=== PATIENT | female | born 1955 | race Caucasian/White ===

== ENCOUNTER → 2017-07-24 | Outpatient (CLI) | payer OTHER ==
[~2017-07-24] MED LIST: ALBU.5I NEB; ALBUAER3 INH; AMBI10TA PO; DIAZ5TAB PO; DULE200A INH; ECON0.052 TOPICAL; FLUO20CA12 PO; GABA100C4 PO; METO5TAB PO; MONT10TA2 PO; MUPI2CRE3 TOPICAL; OMEP20TA PO; OXYC-396 PO; OXYC1CAP PO; PERC10TA27 PO; SPIRCAP INH; SUCR1TAB PO; ZANTTAB11 PO
--- NOTE | 2017-07-24 14:33 | RADRPT ---
EXAM DATE/TIME: 07/24/2017 11:45 [facility] COMPARISON: No previous studies available for comparison. INDICATIONS : Evaluate for pneumonia, pneumothorax or communicable disease. Pre-op for left foot surgery. MEDICAL HISTORY : Myocardial infarction. SURGICAL HISTORY : None. ENCOUNTER: Initial ACUITY: 1 day PAIN SCORE: 0/10 LOCATION: Bilateral chest FINDINGS: PA and lateral views of the chest demonstrate the lungs to be symmetrically aerated without evidence of mass, infiltrate or effusion. The cardiomediastinal contours are unremarkable. Osseous structure s are intact. CONCLUSION: No acute disease. Rigoberto Desouza Jr., MD on July 24, 2017 at 14:22 Board Certified Radiologist. This report was verified electronically.
--- NOTE | 2017-07-25 13:09 | EKG ---
Date Performed: 07/24/2017 Time Performed: 10:58:28 PTAGE: 62 years EKG: Sinus rhythm INDETERMINATE AXIS RIGHT BUNDLE BRANCH BLOCK ABNORMAL ECG NO PREVIOUS TRACING DOCTOR: Bre Blanc Interpretating Date/Time 07/25/2017 13:07:17
== END ==
LOC: CPRE 10:41 → EDUNIT# 12:00
PROVIDERS: ATTEND Podiatrist Primary Podiatric Medicine
DX: Z01.810 Encounter for preprocedural cardiovascular examination (principal); Z01.812 Encounter for preprocedural laboratory examination; M20.5X2 Other deformities of toe(s) (acquired), left foot; M20.42 Other hammer toe(s) (acquired), left foot; I45.10 Unspecified right bundle-branch block
CPT/HCPCS: 71020; 93005

== ENCOUNTER → 2017-07-28 | Day surgery (SDC) | payer OTHER ==
[~2017-07-28] VITALS: Ht 152.4 cm; Wt 52.5 kg
[~2017-07-28] MED LIST changes: +*HYDROmorphone PF 1 MG VIAL PERIprocedural Use ONLY ONE; +ACETAMINOPHEN 325 MG TAB PO PRN; +CHLORHEXIDINE GLUCONATE 2 % 1 PACK (2 CLOTHS) TOPICAL PRN; +DO NOT ADM ANY ANTICOAGULANT DRUGS PRN; +FAMOTIDINE 20 MG/2 ML VIAL ONE; +HYDROmorphone HCL PF 1 MG/ML VIAL IV PRN; +INSULIN HUMAN REGULAR 1,000 UNITS/10 ML VIAL SQ PRN; +LACTATED RINGER'S 1000 ML IV PRN; +LIDOCAINE HCL 1% 50 ML VIAL ONE; +METOPROLOL TARTRATE 25 MG TAB PO PRN; +MIDAZOLAM HCL 2 MG/2 ML VIAL ONE; +NALOXONE HCL 0.4 MG/ML AMP IV PRN; +ONDANSETRON HCL 4 MG/2 ML VIAL IV PUSH ONE; +POVIDONE IODINE 5% (ANTISEPSIS KIT) 4 APPLICATIONS EACH NARE PRN; +PROPOFOL 200 MG/20 ML AMP IV ONE; +Post-op Orders (for Pharmacy) MISC XX ONE; +SODIUM CHLORID 0.9% 500 ML IV PRN; +SODIUM CHLORIDE 0.9% FLUSH 10 ML FLUSH IV FLUSH PRN; +ePHEDrine/NS 25 MG/5 ML SYR IV ONE; +oxyCODONE/ACETAMINOPHEN 10 MG/325 MG TAB PO PRN; +oxyCODONE/ACETAMINOPHEN 5 MG/325 MG TAB PO PRN
--- NOTE | 2017-07-28 10:29 | HHI.DS ---
Discharge Summary Admission Date Discharge Date: Jul 28, 2017 Admitting Diagnosis Pt Condition on Discharge: Good Discharge Disposition: Discharge Home Discharge Instructions DIET: Follow Instructions for: As Tolerated, No Restrictions Activities you can perform: Weight Bearing as Elijah, Full Weight Bearing (with postop shoe) Activities to avoid: Driving for 24 hrs, Prolonged Standing, Bathing, Shower Nicolás Anand DPM Jul 28, 2017 10:29
--- NOTE | 2017-07-28 10:36 | PD.OP ---
Operative Report Date of Surgery: Jul 28, 2017 Preoperative Diagnosis: (1) Hallux limitus of left foot (2) Hammertoe of left foot Postoperative Diagnosis: (1) Hallux limitus of left foot (2) Hammertoe of left foot Procedure: 1 Mora bunionectomy left foot 2 arthrodesis second toe left foot Anesthesia: General inhalation Surgeon: Santoyo DPM Plumber Cub(s): Yuri CULP Operation and Findings: Patient is brought to the operating room placed on the operating table in a supine position. A pneumatic ankle cuff was placed around the patient's left ankle after adequate web roll padding. Patient was given general inhalation anesthesia and the left foot was prepped and draped in the usual sterile manner. After the appropriate timeout was performed the left lower extremity was elevated above the operating table for a period of 3 minutes at which time the pneumatic ankle cuff was inflated to 250 mmHg. Left foot was lowered to the operating table and noticed that the patient had severe hallux abductovalgus with hallux limitus of the left first MPJ. He was also noted that the patient had a severe hammertoe deformity which was overriding the hallux. At this time a 6-1/2 cm linear incision was made medial to the extensor hallucis longus tendon on the dorsal medial aspect of the first MPJ. The incision was deepened using sharp and blunt dissection taking care to tie off on any superficial bleeding vessels and retracting all vital structures. The head of the first metatarsal was freed up and using an oscillating saw the medial bony eminence was resected. Attention was directed to the base of the proximal phalanx where using an oscillating saw proximal third was resected and removed from the surgical site. The hallux can now sit in a more correct anatomical position. The area was flushed with copious amounts of sterile saline. The capsular edges were pursestring and into the space between the first metatarsal and the proximal phalanx. Subcutaneous tissues reapproximated and closed with 3-0 Vicryl. Skin edges were reapproximated and closed using a running subcuticular closure of 5-0 Monocryl. Attention was then directed to the second toe of the left foot which is noted to have a rigid hammertoe deformity at the proximal interphalangeal joint. At this time a 2-1/2 cm linear incision was made centered over the proximal interphalangeal joint. The incision was deepened using sharp and blunt dissection down to the level of the proximal interphalangeal joint. A transverse tenotomy was performed. The head of the proximal phalanx and the base of the intermediate phalanx were then resected using an oscillating saw. After the second toe contraction was reduced 80.453 inch K wire was driven from the intermediate phalanx out through the distal aspect of the second toe and then retrograded into the proximal phalanx of the second toe to achieve rigidity of the reduction contraction. Subcutaneous tissue was flushed with copious amounts of sterile saline. Skin edges were reapproximated and subcutaneous tissue is closed with 3-0 Vicryl and skin edges were closed with 4- 0 Prolene. The shoe be noted that the second toe no longer sat of the hallux. The areas were then injected with 10 cc of 0.5% Marcaine. Bone was sent to pathology. Sponge and instrument counts were noted to be correct. Estimated blood loss was less than 5 cc. Patient's hour the procedures and anesthesia well and left the OR to PACU in apparent satisfactory condition with all vital signs stable. It should be noted that the pneumatic cuff was deflated at 48 minute wayne and the vascular status returned to all digits of the left foot. Nicolás Anand DPM Jul 28, 2017 10:36
--- NOTE | 2017-07-28 12:04 | RADRPT ---
EXAM DATE/TIME: 07/28/2017 10:37 [facility] COMPARISON: No previous studies available for comparison. INDICATIONS : Post op bunionectomy. MEDICAL HISTORY : None. SURGICAL HISTORY : None. ENCOUNTER: Initial ACUITY: 1 day PAIN SCORE: Non-responsive. LOCATION: Left Foot FINDINGS: Pins are seen in the second phalanx and distal first metatarsal. Alignment is anatomic. Degenerativ e changes are evident. CONCLUSION: Surgical pinning as described above. Eliud Alcala MD FACR on July 28, 2017 at 12:01 Board Certified Radiologist. This report was verified electronically.
[2017-07-28 12:10] VITALS: BP 103/58; PULSE 76; RESP 20; TEMP 97.3; O2SAT 96
== END | disposition home or self-care (01) ==
LOC: HSDC 07:01
PROVIDERS: ATTEND Podiatrist Primary Podiatric Medicine
DX: M20.5X2 Other deformities of toe(s) (acquired), left foot (principal); M20.42 Other hammer toe(s) (acquired), left foot; J44.9 Chronic obstructive pulmonary disease, unspecified; E78.5 Hyperlipidemia, unspecified; K76.9 Liver disease, unspecified; M79.7 Fibromyalgia; I25.10 Atherosclerotic heart disease of native coronary artery without angina pectoris; I25.2 Old myocardial infarction; G47.30 Sleep apnea, unspecified; F32.9 Major depressive disorder, single episode, unspecified; M06.9 Rheumatoid arthritis, unspecified; M19.90 Unspecified osteoarthritis, unspecified site; Z87.891 Personal history of nicotine dependence; Z87.11 Personal history of peptic ulcer disease; Z79.891 Long term (current) use of opiate analgesic; Z79.51 Long term (current) use of inhaled steroids; Z79.899 Other long term (current) drug therapy
CPT/HCPCS: 01480; 28285; 28292; 73630; 88304; 88311; J1170; J2250; J2405; J3010; L3260; 88307

== ENCOUNTER 2018-01-06 12:30 | Inpatient (IN) | payer OTHER, MEDICARE ==
[~2018-01-06] VITALS: Ht 152.4 cm; Wt 58.2 kg
[~2018-01-06 12:30] MED LIST changes: -*HYDROmorphone PF 1 MG VIAL PERIprocedural Use ONLY ONE; -ACETAMINOPHEN 325 MG TAB PO PRN; -CHLORHEXIDINE GLUCONATE 2 % 1 PACK (2 CLOTHS) TOPICAL PRN; -DO NOT ADM ANY ANTICOAGULANT DRUGS PRN; -FAMOTIDINE 20 MG/2 ML VIAL ONE; -HYDROmorphone HCL PF 1 MG/ML VIAL IV PRN; -INSULIN HUMAN REGULAR 1,000 UNITS/10 ML VIAL SQ PRN; -LACTATED RINGER'S 1000 ML IV PRN; -LIDOCAINE HCL 1% 50 ML VIAL ONE; -METOPROLOL TARTRATE 25 MG TAB PO PRN; -MIDAZOLAM HCL 2 MG/2 ML VIAL ONE; -NALOXONE HCL 0.4 MG/ML AMP IV PRN; -OMEP20TA PO; +OMEP20TA93 PO; -ONDANSETRON HCL 4 MG/2 ML VIAL IV PUSH ONE; -POVIDONE IODINE 5% (ANTISEPSIS KIT) 4 APPLICATIONS EACH NARE PRN; -PROPOFOL 200 MG/20 ML AMP IV ONE; -Post-op Orders (for Pharmacy) MISC XX ONE; -SODIUM CHLORID 0.9% 500 ML IV PRN; -SODIUM CHLORIDE 0.9% FLUSH 10 ML FLUSH IV FLUSH PRN; -ePHEDrine/NS 25 MG/5 ML SYR IV ONE; -oxyCODONE/ACETAMINOPHEN 10 MG/325 MG TAB PO PRN; -oxyCODONE/ACETAMINOPHEN 5 MG/325 MG TAB PO PRN
[2018-01-06 12:32] VITALS: BP 98/57; PULSE 62; RESP 17; TEMP 98.2; O2SAT 95
--- NOTE | 2018-01-06 13:10 | PD ---
HPI Chief Complaint: Injury Time Seen by Provider: 12:46 Travel History International Travel<30 days: No Contact w/Intl Traveler<30days: No Traveled to known affect area: No History of Present Illness HPI The patient is a [id number] female who presents to the emergency department for evaluation of the second digit, left foot. The patient has a history of diabetes, states that the second digit of the left foot has been black since December 16. The patient has been followed by her utility spray operator, Dr. Morales, who referred her to the emergency department for admission and evaluation by his partner for possible surgical excision. The patient states she has had previous surgery on the left foot, states the toe has been black since 16 December. She now notes the area over the dorsal aspect is open and draining, no foul smell. She does note subjective fevers intermittently for one week without chills or sweats. She does have a history of diabetes for which she takes metformin. She denies any numbness or tingling to the affected foot. Symptoms are moderate. PFSH Past Medical History Hx Anticoagulant Therapy: No Cancer: No Cardiovascular Problems: No Cerebrovascular Accident: No Diabetes: Yes Patient Takes Glucophage: Yes Endocrine: No Gastrointestinal Disorders: Yes Genitourinary: No Hepatitis: No Hiatal Hernia: No Immune Disorder: Yes (FIBROYMALGIA, RA) Medical other: Yes (PANCREAS- LOW FUNCTIONING) Musculoskeletal: Yes (ARTHRITIS) Neurologic: Yes (FOOT PAIN, NEUROPATHY R FOOT) Psychiatric: Yes Reproductive: No Respiratory: Yes (COPD) Thyroid Disease: No ?: Not Past Surgical History Abdominal Surgery: Yes (MASS ON R ADRENEAL REMOVED, GALLBLADDER) AICD: No Appendectomy: Yes Body Medical Devices: PINS IN FEET Cardiac Surgery: Yes (HT CATH) Gynecologic Surgery: Yes (HYSTERECTOMY 2 C SECTIONS) Hysterectomy: Yes Joint Replacement: No Pacemaker: No Tonsillectomy: Yes Other Surgery: Yes Social History Alcohol Use: No Tobacco Use: No Substance Use: No Allergies-Medications (Allergen,Severity, Reaction): Coded Allergies: Iodinated Contrast- Oral and IV Dye (Verified Allergy, Severe, 01/06/18) morphine (Unverified Allergy, Mild, 10/09/17) Uncoded Allergies: MDRO (Adverse Reaction, Unknown, 07/24/17) MRSA IN R HAND AND ON BACK SEVERAL YEARS AGO Reported Meds & Prescriptions Reported Meds & Active Scripts Active Percocet (Oxycodone-Acetaminophen) 10-325 mg Tab 1 Tab PO Q4H PRN Reported Econazole Topical (Econazole Nitrate) 1% Cream 1 Applic TOPICAL BID Albuterol Neb (Albuterol Sulfate) 2.5 Mg/0.5 Ml Neb 2.5 Mg NEB Q4HR NEB PRN Note: The Albuterol Sulfate Inhalation Solution is concentrated and must be diluted. Read complete instructions carefully before using. Singulair (Montelukast Sodium) 10 Mg Tab 10 Mg PO DAILY Zantac 75 (Ranitidine HCl) 75 Mg Tablet 300 Mg PO DAILY Omeprazole 20 Mg Tab 20 Mg PO BID Dulera 120 Act Inh (Mometasone-Formoterol 120 Act Inh) 200-5 Mcg/Act Inh 2 Puff INH BID Proair Hfa 8.5 GM Inh (Albuterol Sulfate) 90 Mcg/Act Aer 2 Puff INH Q4-6H PRN 108 mcg/actuation Fluoxetine (Fluoxetine HCl) 20 Mg Capsule 20 Mg PO DAILY Spiriva Handihaler (Tiotropium Inh) 18 Mcg Cap 18 Mcg INH DAILY 1 capsule = 18 mcg Mupirocin (Mupirocin Calcium (Topical)) 2 % Cre 2 % TOPICAL TID Metoclopramide (Metoclopramide HCl) 5 Mg Tab 5 Mg PO Q4HR Gabapentin 100 Mg Cap 100 Mg PO TID PRN Ambien (Zolpidem Tartrate) 10 Mg Tab 10 Mg PO HS PRN Diazepam 5 Mg Tab 5 Mg PO Q12HR PRN Oxycodone (Oxycodone HCl) 20 Mg Tab 20 Mg PO Q12HR PRN Oxycodone (Oxycodone HCl) 5 Mg Cap 5 Mg PO Q4H PRN Sucralfate 1 Gm Tab 1 Gm PO QID on empty stomach Review of Systems Except as stated in HPI: all other systems reviewed are Neg General / Constitutional: Positive: Fever Cardiovascular: No: Chest Pain or Discomfort Respiratory: No: Shortness of Breath Gastrointestinal: No: Nausea, Vomiting, Abdominal Pain Musculoskeletal: Positive: Pain Skin: Positive Other (as noted in history of present illness) Physical Exam Narrative GENERAL: Awake, alert, pleasant 62-year-old female who appears her stated age and is in no acute respiratory distress. SKIN: Focused skin assessment warm/dry. HEAD: Atraumatic. Normocephalic. EYES: Pupils equal and round. No scleral icterus. No injection or drainage. ENT: No nasal bleeding or discharge. Mucous membranes pink and moist. NECK: Trachea midline. No JVD. CARDIOVASCULAR: Regular rate and rhythm. No murmur appreciated. RESPIRATORY: No accessory muscle use. Clear to auscultation. Breath sounds equal bilaterally. GASTROINTESTINAL: Abdomen soft, non-tender, nondistended. Hepatic and splenic margins not palpable. MUSCULOSKELETAL: The second digit left foot is black, necrotic, with an open area of the dorsal aspect which is draining. Surgical excision noted over the dorsal aspect proximal to the left great toe. Positive left dorsalis pedal pulse. NEUROLOGICAL: Awake and alert. No obvious cranial nerve deficits. Motor grossly within normal limits. Normal speech. PSYCHIATRIC: Appropriate mood and affect; insight and judgment normal. Data Data Last Documented VS Vital Signs Date Time Temp Pulse Resp B/P (MAP) Pulse Ox O2 Delivery O2 Flow Rate FiO2 01/06/18 14:29 72 18 100/68 (79) 95 Room Air 01/06/18 12:32 98.2 Orders Orders Toe (Min 2vws) (01/06/18 ) Complete Blood Count With Diff (01/06/18 13:02) Comprehensive Metabolic Panel (01/06/18 13:02) Westergren Sedimentation Rate (01/06/18 13:02) C-Reactive Protein (Crp) (01/06/18 13:02) Blood Culture (01/06/18 13:02) Lactic Acid (01/06/18 13:02) Piperacil-Tazo 4.5 Gm Premix (Zosyn 4.5 (01/06/18 13:15) Vancomycin Inj (Vancomycin Inj) (01/06/18 13:15) Sodium Chlor 0.9% 1000 Ml Inj (Ns 1000 M (01/06/18 13:15) Hydromorphone Pf Inj (Dilaudid Pf Inj) (01/06/18 13:15) Ondansetron Inj (Zofran Inj) (01/06/18 13:15) Consult Podiatry (01/06/18 ) (Hub Use Only)Inp Phy Cons/Ref (01/06/18 ) (Hub Use Only)Inp Phy Cons/Ref (01/06/18 ) Admit To Inpatient (01/06/18 ) Code Status (01/06/18 14:28) Vital Signs (Adult) Q4H (01/06/18 14:28) Activity Oob Ad Irasema (01/06/18 14:28) Bedside Glucose DARLINE.CSUGAR (01/06/18 14:28) Intake + Output DARLINE.QSHIFT (01/06/18 14:28) Notify Dr: Other (01/06/18 14:28) Sodium Chlor 0.9% 1000 Ml Inj (Ns 1000 M (01/06/18 14:28) Sodium Chloride 0.9% Flush (Ns Flush) (01/06/18 14:30) Sodium Chloride 0.9% Flush (Ns Flush) (01/06/18 21:00) Acetaminophen (Tylenol) (01/06/18 14:30) Ondansetron Inj (Zofran Inj) (01/06/18 14:30) Comprehensive Metabolic Panel (01/07/18 06:00) Complete Blood Count With Diff (01/07/18 06:00) Blood Culture (01/06/18 14:28) Urinalysis - C+S If Indicated (01/06/18 14:28) Case Management Consult (01/06/18 14:28) Enoxaparin Inj (Lovenox Inj) (01/06/18 14:30) Naloxone Inj (Narcan Inj) (01/06/18 14:30) Sennosides (Senokot) (01/06/18 14:30) Bisacodyl Supp (Dulcolax Supp) (01/06/18 14:30) Lactulose Liq (Lactulose Liq) (01/06/18 14:30) Inpatient Certification (01/06/18 ) Npo After Midnight W/ Po Meds (01/06/18 Dinner) Insulin Aspart Supplemtl Scale (Novolog (01/06/18 17:00) ^ Other Nursing Orders (01/06/18 14:33) Diazepam (Valium) (01/06/18 14:45) Fluoxetine (Prozac) (01/07/18 09:00) Gabapentin (Neurontin) (01/06/18 14:45) Montelukast (Singulair) (01/07/18 09:00) Oxycodone (Roxicodone) (01/06/18 14:45) Sucralfate (Carafate) (01/06/18 18:00) Tiotropium Inh (Spiriva Inh) (01/07/18 09:00) Zolpidem (Ambien) (01/06/18 14:45) (Nf) Mometasone-Formoterol 120 Act Inh ( (01/06/18 21:00) (Nf) Omeprazole (01/06/18 21:00) (Nf) Ranitidine Hcl (Zantac 75) (01/07/18 09:00) Admit Order (Ed Use Only) (01/06/18 14:37) Labs Laboratory Tests Test 01/06/18 13:00 White Blood Count 6.7 TH/MM3 Red Blood Count 4.43 MIL/MM3 Hemoglobin 13.8 GM/DL Hematocrit 40.0 % Mean Corpuscular Volume 90.3 FL Mean Corpuscular Hemoglobin 31.1 PG Mean Corpuscular Hemoglobin Concent 34.5 % Red Cell Distribution Width 13.5 % Platelet Count 216 TH/MM3 Mean Platelet Volume 7.8 FL Neutrophils (%) (Auto) 61.5 % Lymphocytes (%) (Auto) 28.5 % Monocytes (%) (Auto) 5.9 % Eosinophils (%) (Auto) 3.4 % Basophils (%) (Auto) 0.7 % Neutrophils # (Auto) 4.1 TH/MM3 Lymphocytes # (Auto) 1.9 TH/MM3 Monocytes # (Auto) 0.4 TH/MM3 Eosinophils # (Auto) 0.2 TH/MM3 Basophils # (Auto) 0.0 TH/MM3 CBC Comment DIFF FINAL Differential Comment Erythrocyte Sedimentation Rate 13 mm/hr Blood Urea Nitrogen 15 MG/DL Creatinine 0.73 MG/DL Random Glucose 92 MG/DL Total Protein 7.2 GM/DL Albumin 3.6 GM/DL Calcium Level 8.4 MG/DL Alkaline Phosphatase 163 U/L Aspartate Amino Transf (AST/SGOT) 13 U/L Alanine Aminotransferase (ALT/SGPT) 23 U/L Total Bilirubin 0.3 MG/DL Sodium Level 138 MEQ/L Potassium Level 3.7 MEQ/L Chloride Level 104 MEQ/L Carbon Dioxide Level 30.4 MEQ/L Anion Gap 4 MEQ/L Estimat Glomerular Filtration Rate 81 ML/MIN Lactic Acid Level 0.9 mmol/L C-Reactive Protein LESS THAN 0.29 MG/DL MDM Medical Decision Making Medical Screen Exam Complete: Yes Emergency Medical Condition: Yes Medical Record Reviewed: Yes Interpretation(s) Last Impressions Toe X-Ray 01/06/18 0000 Signed Impressions: Service Date/Time: Saturday, January 06, 2018 13:27 - CONCLUSION: No abnormality identified with respect to the distal phalanx of the first digit, however, there is osseous irregularity involving the base of the proximal phalanx concerning for possible site of osteomyelitis.. Tisha Dominguez MD Laboratory Tests Test 01/06/18 13:00 White Blood Count 6.7 TH/MM3 Red Blood Count 4.43 MIL/MM3 Hemoglobin 13.8 GM/DL Hematocrit 40.0 % Mean Corpuscular Volume 90.3 FL Mean Corpuscular Hemoglobin 31.1 PG Mean Corpuscular Hemoglobin Concent 34.5 % Red Cell Distribution Width 13.5 % Platelet Count 216 TH/MM3 Mean Platelet Volume 7.8 FL Neutrophils (%) (Auto) 61.5 % Lymphocytes (%) (Auto) 28.5 % Monocytes (%) (Auto) 5.9 % Eosinophils (%) (Auto) 3.4 % Basophils (%) (Auto) 0.7 % Neutrophils # (Auto) 4.1 TH/MM3 Lymphocytes # (Auto) 1.9 TH/MM3 Monocytes # (Auto) 0.4 TH/MM3 Eosinophils # (Auto) 0.2 TH/MM3 Basophils # (Auto) 0.0 TH/MM3 CBC Comment DIFF FINAL Differential Comment Erythrocyte Sedimentation Rate 13 mm/hr Blood Urea Nitrogen 15 MG/DL Creatinine 0.73 MG/DL Random Glucose 92 MG/DL Total Protein 7.2 GM/DL Albumin 3.6 GM/DL Calcium Level 8.4 MG/DL Alkaline Phosphatase 163 U/L Aspartate Amino Transf (AST/SGOT) 13 U/L Alanine Aminotransferase (ALT/SGPT) 23 U/L Total Bilirubin 0.3 MG/DL Sodium Level 138 MEQ/L Potassium Level 3.7 MEQ/L Chloride Level 104 MEQ/L Carbon Dioxide Level 30.4 MEQ/L Anion Gap 4 MEQ/L Estimat Glomerular Filtration Rate 81 ML/MIN Lactic Acid Level 0.9 mmol/L C-Reactive Protein LESS THAN 0.29 MG/DL Differential Diagnosis Differential diagnosis includes gangrene, wet gangrene, dry gangrene, PVD, osteomyelitis, necrotic ulcer, sepsis. Narrative Course IV was established, labs are drawn and sent, and the patient was placed on cardiac telemetry monitoring and continuous pulse oximetry monitoring. X-ray of the second toe, left foot, was obtained. CRP, sedimentation rate, lactic acid, blood culture were sent to lab. The patient was administered Zosyn and vancomycin. A call was placed to the on-call utility spray operator. I discussed the patient with Dr. Dhillon, he states to place the admission to [facility] or primary physician, and. After midnight for possible surgical management tomorrow. The patient will be admitted, I discussed the patient with Dr. Back who agrees with admission. X-ray did reveal bony changes, possibly osteomyelitis. Physician Communication Physician Communication I discussed the patient with Dr. Back who agrees with admission. Diagnosis Primary Impression: Gangrene Additional Impression: Osteomyelitis Qualified Codes: M86.9 - Osteomyelitis, unspecified Admitting Information Admitting Physician Requests: Admit Condition: Stable Reynaldo Fisher MD Jan 06, 2018 13:09
[2018-01-06] MEDS ORDERED: HYDROmorphone HCL PF 2 MG/ML VIAL IV PUSH ONE (13:15)
[2018-01-06] MEDS ORDERED: PIPERACIL-TAZO 4.5 GM PREMIX 100 ML IV ONE (13:15)
[2018-01-06] MEDS ORDERED: ONDANSETRON HCL 4 MG/2 ML VIAL IV PUSH ONE (13:15)
[2018-01-06] MEDS ORDERED: VANCOMYCIN INJ 1,000 MG in SODIUM CHLOR 0.9% 250 ML INJ 250 ML IV ONE (13:15)
[2018-01-06] MEDS ORDERED: SODIUM CHLOR 0.9% 1000 ML INJ 1,000 ML IV ONE (13:15)
[2018-01-06 13:35] LABS: AUTOMATED NEUTROPHIL # 4.1 TH/MM3 (1.8-7.7); BASOPHIL % 0.7 % (0.0-2.0); EOSINOPHIL # 0.2 TH/MM3 (0-0.4); EOSINOPHIL % 3.4 % (0.0-4.0); HEMOGLOBIN 13.8 GM/DL (11.6-15.3); LYMPH % 28.5 % (9.0-44.0); LYMPHOCYTE # 1.9 TH/MM3 (1.0-4.8); MEAN CELL VOLUME 90.3 FL (80.0-100.0); MEAN CORPUSCULAR HEMOGLOBIN 31.1 PG (27.0-34.0); MEAN CORPUSCULAR HGB CONC 34.5 % (32.0-36.0); MEAN PLATELET VOLUME 7.8 FL (7.0-11.0); MONO % 5.9 % (0.0-8.0); MONOCYTE # 0.4 TH/MM3 (0-0.9); NEUT % 61.5 % (16.0-70.0); PLATELET COUNT 216 TH/MM3 (150-450); RED BLOOD COUNT 4.43 MIL/MM3 (4.00-5.30); RED CELL DISTRIBUTION WIDTH 13.5 % (11.6-17.2); WHITE BLOOD COUNT 6.7 TH/MM3 (4.0-11.0)
--- NOTE | 2018-01-06 13:46 | RADRPT ---
EXAM DATE/TIME: 01/06/2018 13:27 [facility] COMPARISON: FOOT LEFT COMPLETE ([id number]), July 28, 2017, 10:37. INDICATIONS : Osteomyelitis- Wet gangrene. Toe pain MEDICAL HISTORY : Myocardial infarction. SURGICAL HISTORY : bunionectomy. ENCOUNTER: Initial ACUITY: 3 days PAIN SCORE: 10/10 LOCATION: Left foot 2nd digit. FINDINGS: 3 views of the left foot demonstrate interval placement of surgical hardware fusing the first digit a t the metatarsal phalangeal junction. There is osseous irregularity involving the proximal portion of the proximal phalanx. No abnormality identified with respect to the distal phalanx. Interval resecti on of the second metatarsal head. Fusion across the second digit proximal and middle phalanx. CONCLUSION: No abnormality identified with respect to the distal phalanx of the first digit, however, there is os seous irregularity involving the base of the proximal phalanx concerning for possible site of osteomy elitis.. Tisha Dominguez MD on January 06, 2018 at 13:41 Board Certified Radiologist. This report was verified electronically.
[2018-01-06 13:55] LABS: ALBUMIN 3.6 GM/DL (3.4-5.0); ALT (GPT) 23 U/L (10-53); AST (GOT) 13 U/L (15-37); BICARBONATE 30.4 MEQ/L (21.0-32.0); BLOOD UREA NITROGEN 15 MG/DL (7-18); C-REACTIVE PROTEIN LESS THAN 0.29 MG/DL (0.00-0.30); CALCIUM 8.4 MG/DL (8.5-10.1); CHLORIDE 104 MEQ/L (98-107); CREATININE 0.73 MG/DL (0.50-1.00); GLOMERULAR FILTRATION RATE 81 ML/MIN (>89); GLUCOSE,RANDOM 92 MG/DL (74-106); SODIUM (NA) 138 MEQ/L (136-145)
[2018-01-06 13:58] LABS: ALKALINE PHOSPHATASE 163 U/L (45-117); TOTAL BILIRUBIN ADULT 0.3 MG/DL (0.2-1.0); TOTAL PROTEIN 7.2 GM/DL (6.4-8.2)
[2018-01-06 14:29] VITALS: BP 100/68; PULSE 72; RESP 18; O2SAT 95
[2018-01-06] MEDS ORDERED: LACTULOSE SYRUP 20 GM/30 ML CUP PO PRN (14:30)
[2018-01-06] MEDS ORDERED: ONDANSETRON HCL 4 MG/2 ML VIAL IVP PRN (14:30)
[2018-01-06] MEDS ORDERED: SENNOSIDES 8.6 MG TAB PO PRN (14:30)
[2018-01-06] MEDS ORDERED: BISACODYL 10 MG SUPP RECTAL PRN (14:30)
[2018-01-06] MEDS ORDERED: NALOXONE HCL 0.4 MG/ML AMP IV PUSH PRN (14:30)
[2018-01-06] MEDS ORDERED: ACETAMINOPHEN 325 MG TAB PO PRN (14:30)
--- NOTE | 2018-01-06 14:35 | HHI.HP ---
HPI Service [facility] Primary Care Physician Non-Staff Admission Diagnosis Diagnoses: Travel History International Travel<30 Days: No Contact w/Intl Traveler <30 Da: No Traveled to Known Affected Are: No History of Present Illness This is a pleasant 62 y/o Female who came to ER with left second toe infection, she has DM II, her digit has been ecchymotic since December 16 The patient has been followed by her principal scientist, Dr. Morales, who referred her to the emergency department for admission and evaluation by his partner for possible surgical excision. The patient states she has had previous surgery on the same foot, She now notes the area over the dorsal aspect is open and draining, no foul smell. She does note subjective fevers intermittently for one week without chills or sweats. The patient had recent surgery performed by Doctor Julita Morales for the first left toe on July 30 2017, was already discussed with Podiatry specialist covering for the group and recommended for surgery tomorrow in am, she will be NPO at midnight Review of Systems Constitutional: DENIES: Fever, Chills, Change in appetite Endocrine: DENIES: Heat/cold intolerance Eyes: DENIES: Blurred vision, Eye pain Except as stated in HPI: all other systems reviewed are Neg Past Family Social History Past Medical History DM II Fibromyalgia RA OA Peripheral neuropathy COPD Crohn's Disease Past Surgical History Cholecystectomy Right Adrenal mass surgery foot surgery PCI DANY 2 C Sections Depression GERD TMJ Appendectomy Reported Medications Reported Meds & Active Scripts Active Percocet (Oxycodone-Acetaminophen) 10-325 mg Tab 1 Tab PO Q4H PRN Reported Econazole Topical (Econazole Nitrate) 1% Cream 1 Applic TOPICAL BID Albuterol Neb (Albuterol Sulfate) 2.5 Mg/0.5 Ml Neb 2.5 Mg NEB Q4HR NEB PRN Note: The Albuterol Sulfate Inhalation Solution is concentrated and must be diluted. Read complete instructions carefully before using. Singulair (Montelukast Sodium) 10 Mg Tab 10 Mg PO DAILY Zantac 75 (Ranitidine HCl) 75 Mg Tablet 300 Mg PO DAILY Omeprazole 20 Mg Tab 20 Mg PO BID Dulera 120 Act Inh (Mometasone-Formoterol 120 Act Inh) 200-5 Mcg/Act Inh 2 Puff INH BID Proair Hfa 8.5 GM Inh (Albuterol Sulfate) 90 Mcg/Act Aer 2 Puff INH Q4-6H PRN 108 mcg/actuation Fluoxetine (Fluoxetine HCl) 20 Mg Capsule 20 Mg PO DAILY Spiriva Handihaler (Tiotropium Inh) 18 Mcg Cap 18 Mcg INH DAILY 1 capsule = 18 mcg Mupirocin (Mupirocin Calcium (Topical)) 2 % Cre 2 % TOPICAL TID Metoclopramide (Metoclopramide HCl) 5 Mg Tab 5 Mg PO Q4HR Gabapentin 100 Mg Cap 100 Mg PO TID PRN Ambien (Zolpidem Tartrate) 10 Mg Tab 10 Mg PO HS PRN Diazepam 5 Mg Tab 5 Mg PO Q12HR PRN Oxycodone (Oxycodone HCl) 20 Mg Tab 20 Mg PO Q12HR PRN Oxycodone (Oxycodone HCl) 5 Mg Cap 5 Mg PO Q4H PRN Sucralfate 1 Gm Tab 1 Gm PO QID on empty stomach Allergies: Coded Allergies: Iodinated Contrast- Oral and IV Dye (Verified Allergy, Severe, 01/06/18) morphine (Unverified Allergy, Mild, 10/09/17) Uncoded Allergies: MDRO (Adverse Reaction, Unknown, 07/24/17) MRSA IN R HAND AND ON BACK SEVERAL YEARS AGO Active Ordered Medications Current Medications Medications (Trade) Dose Ordered Sig/Cassi Route Start Time Stop Time Status Last Admin Sodium Chloride 1,000 ml @ 83 mls/hr Q12H3M IV 01/06/18 15:00 (NS Flush) 2 ml UNSCH PRN IV FLUSH 01/06/18 14:30 (NS Flush) 2 ml BID IV FLUSH 01/06/18 21:00 (Tylenol) 650 mg Q4H PRN PO 01/06/18 14:30 (Zofran Inj) 4 mg Q6H PRN IVP 01/06/18 14:30 (Lovenox Inj) 40 mg Q24H SQ 01/06/18 15:00 01/06/18 15:26 (Narcan Inj) 0.4 mg UNSCH PRN IV PUSH 01/06/18 14:30 (Senokot) 17.2 mg Q12H PRN PO 01/06/18 14:30 (Dulcolax Supp) 10 mg DAILY PRN RECTAL 01/06/18 14:30 (Lactulose Liq) 30 ml DAILY PRN PO 01/06/18 14:30 (NovoLOG SUPPLEMENTAL SCALE) 1 ACHS SLIDING SCALE SQ 01/06/18 17:00 (Valium) 5 mg Q12HR PRN PO 01/06/18 14:45 01/06/18 15:27 (PROzac) 20 mg DAILY PO 01/07/18 09:00 (Neurontin) 100 mg TID PRN PO 01/06/18 14:45 (Singulair) 10 mg DAILY PO 01/07/18 09:00 (Roxicodone) 5 mg Q4H PRN PO 01/06/18 14:45 (Carafate) 1 gm QID PO 01/06/18 18:00 (Spiriva Inh) 18 mcg DAILY INH 01/07/18 09:00 (Ambien) 10 mg HS PRN PO 01/06/18 14:45 (Symbicort 160-4.5 Mcg Inh) 2 puff BID INH 01/06/18 15:00 01/06/18 15:26 (Protonix) 40 mg DAILY PO 01/06/18 21:00 (Pepcid) 20 mg BID PO 01/06/18 21:00 (D50w (Vial) Inj) 50 ml UNSCH PRN IV PUSH 01/06/18 14:45 (Glucagon Inj) 1 mg UNSCH PRN OTHER 01/06/18 14:45 (Duoneb Neb) 1 ampule Q4HR NEB NEB 01/06/18 16:00 (Mucinex Er) 600 mg BID PO 01/06/18 21:00 (Dilaudid Pf Inj) 1 mg Q4H PRN IV PUSH 01/06/18 15:15 Family History Diabetes Mellitus almost all her Relatives Father with Stroke at 53 y/o and Mother with CAD Social History heavy former smoker of two packs daily until two years ago, started when she was 15 years of age denies other toxic habits. lives with her boyfriend. Physical Exam Vital Signs Vital Signs Date Time Temp Pulse Resp B/P (MAP) Pulse Ox O2 Delivery O2 Flow Rate FiO2 01/06/18 12:32 98.2 62 17 98/57 (24) 95 Physical Exam GENERAL: Awake, alert, pleasant SKIN: Focused skin assessment warm/dry. HEAD: Atraumatic. Normocephalic. EYES: Pupils equal and round. No scleral icterus. No injection or drainage. ENT: No nasal bleeding or discharge. Mucous membranes pink and moist. NECK: Trachea midline. No JVD. CARDIOVASCULAR: Regular rate and rhythm. No murmur appreciated. RESPIRATORY: No accessory muscle use. Clear to auscultation. Breath sounds equal bilaterally. GASTROINTESTINAL: Abdomen soft, non-tender, nondistended. Hepatic and splenic margins not palpable. MUSCULOSKELETAL: The second digit left foot is black, necrotic, with an open area of the dorsal aspect which is draining. Surgical excision noted over the dorsal aspect proximal to the left great toe. Positive left dorsalis pedal pulse. NEUROLOGICAL: Awake and alert. No obvious cranial nerve deficits. Motor grossly within normal limits. Normal speech. PSYCHIATRIC: Appropriate mood and affect; insight and judgment normal. Laboratory Laboratory Tests Test 01/06/18 13:00 White Blood Count 6.7 Red Blood Count 4.43 Hemoglobin 13.8 Hematocrit 40.0 Mean Corpuscular Volume 90.3 Mean Corpuscular Hemoglobin 31.1 Mean Corpuscular Hemoglobin Concent 34.5 Red Cell Distribution Width 13.5 Platelet Count 216 Mean Platelet Volume 7.8 Neutrophils (%) (Auto) 61.5 Lymphocytes (%) (Auto) 28.5 Monocytes (%) (Auto) 5.9 Eosinophils (%) (Auto) 3.4 Basophils (%) (Auto) 0.7 Neutrophils # (Auto) 4.1 Lymphocytes # (Auto) 1.9 Monocytes # (Auto) 0.4 Eosinophils # (Auto) 0.2 Basophils # (Auto) 0.0 CBC Comment DIFF FINAL Differential Comment Erythrocyte Sedimentation Rate 13 Blood Urea Nitrogen 15 Creatinine 0.73 Random Glucose 92 Total Protein 7.2 Albumin 3.6 Calcium Level 8.4 Alkaline Phosphatase 163 Aspartate Amino Transf (AST/SGOT) 13 Alanine Aminotransferase (ALT/SGPT) 23 Total Bilirubin 0.3 Sodium Level 138 Potassium Level 3.7 Chloride Level 104 Carbon Dioxide Level 30.4 Anion Gap 4 Estimat Glomerular Filtration Rate 81 Lactic Acid Level 0.9 C-Reactive Protein LESS THAN 0.29 Date/Time Source Procedure Growth Status 01/06/18 13:16 Blood Peripheral Aerobic Blood Culture Pending Received 01/06/18 13:16 Blood Peripheral Anaerobic Blood Culture Pending Received Result Diagram: 01/06/18 1300 01/06/18 1300 Imaging Last Impressions Toe X-Ray 01/06/18 0000 Signed Impressions: Service Date/Time: Saturday, January 06, 2018 13:27 - CONCLUSION: No abnormality identified with respect to the distal phalanx of the first digit, however, there is osseous irregularity involving the base of the proximal phalanx concerning for possible site of osteomyelitis.. MD Adis Mahajan VTE Risk Assessment Caprini VTE Risk Assessment: Mod/High Risk (score >= 2) Caprini Risk Assessment Model Point Value = 1 Point Value = 2 Point Value = 3 Point Value = 5 Age 41-60 Minor surgery BMI > 25 kg/m2 Swollen legs Varicose veins or History of unexplained or recurrent spontaneous Oral contraceptives or hormone replacement Sepsis (< 1 month) Serious lung disease, including pneumonia (< 1 month) Abnormal pulmonary function Acute myocardial infarction Congestive heart failure (< 1 month) History of inflammatory bowel disease Medical patient at bed rest Age 61-74 Arthroscopic surgery Major open surgery (> 45 min) Laparoscopic surgery (> 45 min) Malignancy Confined to bed (> 72 hours) Immobilizing plaster cast Central venous access Age >= 75 History of VTE Family history of VTE Factor V Leiden Prothrombin [id number] Lupus anticoagulant Anticardiolipin antibodies Elevated serum homocysteine Heparin-induced thrombocytopenia Other congenital or acquired thrombophilia Stroke (< 1 month) Elective arthroplasty Hip, pelvis, or leg fracture Acute spinal cord injury (< 1 month) Prophylaxis Regimen Total Risk Factor Score Risk Level Prophylaxis Regimen 0-1 Low Early ambulation 2 Moderate Order ONE of the following: *Sequential Compression Device (SCD) *Heparin 5000 units SQ BID 3-4 Higher Order ONE of the following medications: *Heparin 5000 units SQ TID *Enoxaparin/Lovenox 40 mg SQ daily (WT < 150 kg, CrCl > 30 mL/min) *Enoxaparin/Lovenox 30 mg SQ daily (WT < 150 kg, CrCl > 10-29 mL/min) *Enoxaparin/Lovenox 30 mg SQ BID (WT < 150 kg, CrCl > 30 mL/min) AND/OR *Sequential Compression Device (SCD) 5 or more Highest Order ONE of the following medications: *Heparin 5000 units SQ TID (Preferred with Epidurals) *Enoxaparin/Lovenox 40 mg SQ daily (WT < 150 kg, CrCl > 30 mL/min) *Enoxaparin/Lovenox 30 mg SQ daily (WT < 150 kg, CrCl > 10-29 mL/min) *Enoxaparin/Lovenox 30 mg SQ BID (WT < 150 kg, CrCl > 30 mL/min) AND *Sequential Compression Device (SCD) Assessment and Plan Assessment and Plan 1. Left Foot second Toe osteomyelitis for surgery tomorrow. already discussed with Podiatry specialist recommended to be NPO at midnight. No signs of infection at this time has dry necrosis, pain medicine in chart. 2. DM II stable get hemoglobin A1C, sliding scale she will be NPO at midnight. 3. Fibromyalgia by history. 4. RA by history 5. Peripheral neuropathy continue Gabapentin 6. COPD on Bronchodilator, Mucolytic and incentive spirometry non exacerbated at this time 7. Crohn's Disease by history on no medicines for this at this time. 8. GERD to continue Ranitidine. DVT prophylaxis the patient received one dose of Lovenox but stopped due that will have surgery tomorrow. Code Status Full Code. Discussed Condition With Reynaldo Fisher MD Physician Certification 2 Midnight Certification Type: Admission for Inpatient Services Order for Inpatient Services The services are ordered in accordance with Medicare regulations or non- Medicare payer requirements, as applicable. In the case of services not specified as inpatient-only, they are appropriately provided as inpatient services in accordance with the 2-midnight benchmark. Estimated LOS (days): 3 days is the estimated time the patient will need to remain in the hospital, assuming treatment plan goals are met and no additional complications. Post-Hospital Plan: Not yet determined Ozzie Molina MD Jan 06, 2018 14:35
[2018-01-06] MEDS ORDERED: GLUCAGON 1 MG/ML VIAL OTHER PRN (14:45)
[2018-01-06] MEDS ORDERED: DEXTROSE 50% IN WATER 50 ML VIAL(D50) IV PUSH PRN (14:45)
[2018-01-06] MEDS: SODIUM CHLOR 0.9% 1000 ML INJ 1,000 ML IV SCH ×2 (15:00→18:09)
[2018-01-06] MEDS ORDERED: ENOXAPARIN SODIUM 40 MG/0.4 ML SYRINGE SQ SCH (15:00)
[2018-01-06] MEDS: BUDESONIDE-FORMOTEROL 160/4.5 MCG INHALER INH SCH ×2 (15:26→21:46)
[2018-01-06] MEDS: DIAZEPAM 5 MG TAB PO PRN (15:27)
[2018-01-06 16:00] VITALS: BP 91/46; PULSE 56; RESP 16; TEMP 97.4; O2SAT 92
[2018-01-06 16:46] LABS: CHOLESTEROL/ HDL RATIO 4.24 RATIO; FREE T4 0.81 NG/DL (0.76-1.46); HDL CHOLESTEROL 51.3 MG/DL (40.0-60.0)
[2018-01-06] MEDS: INSULIN ASPART SUPPLEMENTAL SCALE SQ SCH ×2 (16:48→23:05)
[2018-01-06] MEDS: SUCRALFATE 1 GM TAB PO SCH ×2 (18:09→21:46)
[2018-01-06] MEDS: HYDROmorphone HCL PF 2 MG/ML VIAL IV PUSH PRN ×2 (18:13→22:09)
[2018-01-06 20:15] VITALS: BP 116/63; PULSE 73; RESP 17; TEMP 98.8; O2SAT 94
[2018-01-06] MEDS: RESP: ALBUTEROL 2.5 MG/IPRATROPIUM 0.5 MG NEB (SCH) NEB (21:04)
[2018-01-06] MEDS: FAMOTIDINE 20 MG TAB PO SCH (21:46)
[2018-01-06] MEDS: PANTOPRAZOLE SOD 40 MG DELAYED RELEASE TAB PO SCH (21:46)
[2018-01-06] MEDS: guaiFENesin E.R. 600 MG TAB PO SCH (21:46)
[2018-01-06] MEDS: SODIUM CHLORIDE 0.9% FLUSH 10 ML FLUSH IV FLUSH SCH (21:46)
[2018-01-06] MEDS: ZOLPIDEM TARTRATE 10 MG TAB PO PRN (21:50)
[2018-01-07 00:20] VITALS: BP 98/50; PULSE 69; RESP 19; TEMP 98.1; O2SAT 94
[2018-01-07] MEDS: RESP: ALBUTEROL 2.5 MG/IPRATROPIUM 0.5 MG NEB (SCH) NEB ×6 (00:41→19:21)
[2018-01-07 04:00] VITALS: BP 101/56; PULSE 69; RESP 20; TEMP 98.7; O2SAT 96
[2018-01-07] MEDS: HYDROmorphone HCL PF 2 MG/ML VIAL IV PUSH PRN ×4 (04:12→20:50)
[2018-01-07] MEDS: DIAZEPAM 5 MG TAB PO PRN ×3 (04:22→22:39)
[2018-01-07] MEDS: SODIUM CHLOR 0.9% 1000 ML INJ 1,000 ML IV SCH ×2 (06:26→20:44)
[2018-01-07] MEDS: INSULIN ASPART SUPPLEMENTAL SCALE SQ SCH ×4 (07:13→21:00)
[2018-01-07] MEDS: SODIUM CHLORIDE 0.9% FLUSH 10 ML FLUSH IV FLUSH SCH ×2 (07:14→20:44)
[2018-01-07] MEDS: FAMOTIDINE 20 MG TAB PO SCH ×2 (07:54→20:44)
[2018-01-07] MEDS: PANTOPRAZOLE SOD 40 MG DELAYED RELEASE TAB PO SCH (07:54)
[2018-01-07] MEDS: MONTELUKAST SODIUM 10 MG TAB PO SCH (07:54)
[2018-01-07] MEDS: SUCRALFATE 1 GM TAB PO SCH ×4 (07:54→20:44)
[2018-01-07] MEDS: guaiFENesin E.R. 600 MG TAB PO SCH ×2 (07:54→20:44)
[2018-01-07] MEDS: TIOTROPIUM BROMIDE 18 MCG INH INH SCH (07:55)
[2018-01-07] MEDS: BUDESONIDE-FORMOTEROL 160/4.5 MCG INHALER INH SCH ×2 (07:55→20:45)
[2018-01-07] MEDS: FLUoxetine HCL 20 MG CAP PO SCH (07:57)
[2018-01-07 08:00] VITALS: BP 118/58; PULSE 83; RESP 18; TEMP 98.2; O2SAT 96
--- NOTE | 2018-01-07 08:29 | PD.CONS ---
History of Present Illness Service Foot and Ankle Surgery/Podiatry Consult Requested By Reason for Consult Right second digit gangrene; Right foot infection Primary Care Physician Non-Staff Diagnoses: History of Present Illness Podiatry consultation for this 62-year-old female who presented to the emergency department for evaluation of second digit left foot. Patient's history of diabetes states that Dr. Morales has been treating her for right second digit ulceration. She reports drainage to the dorsal aspect of the left foot. Reports fevers but denies any night sweats or chills. Patient is very upset emotional about left second digit. . Review of Systems Constitutional: COMPLAINS OF: Fever Endocrine: DENIES: Heat/cold intolerance Ears, nose, mouth, throat: DENIES: Hearing loss Respiratory: DENIES: Cough, Wheezing, Shortness of breath Cardiovascular: DENIES: Chest pain, Palpitations Gastrointestinal: DENIES: Nausea, Vomiting Integumentary: COMPLAINS OF: Abnormal pigmentation (noted to left second digit ) Psychiatric: DENIES: Anxiety, Confusion, Mood changes Past Family Social History Allergies: Coded Allergies: Iodinated Contrast- Oral and IV Dye (Verified Allergy, Severe, 01/06/18) morphine (Unverified Allergy, Mild, 10/09/17) Uncoded Allergies: MDRO (Adverse Reaction, Unknown, 07/24/17) MRSA IN R HAND AND ON BACK SEVERAL YEARS AGO Past Medical History as dictated in HPI Past Surgical History Left MPJ fusion, Left second digit revisional arthroplasty Active Ordered Medications Current Medications Medications (Trade) Dose Ordered Sig/Cassi Route Start Time Stop Time Status Last Admin Sodium Chloride 1,000 ml @ 83 mls/hr Q12H3M IV 01/06/18 15:00 01/07/18 06:26 (NS Flush) 2 ml UNSCH PRN IV FLUSH 01/06/18 14:30 (NS Flush) 2 ml BID IV FLUSH 01/06/18 21:00 01/06/18 21:46 (Tylenol) 650 mg Q4H PRN PO 01/06/18 14:30 (Zofran Inj) 4 mg Q6H PRN IVP 01/06/18 14:30 (Narcan Inj) 0.4 mg UNSCH PRN IV PUSH 01/06/18 14:30 (Senokot) 17.2 mg Q12H PRN PO 01/06/18 14:30 (Dulcolax Supp) 10 mg DAILY PRN RECTAL 01/06/18 14:30 (Lactulose Liq) 30 ml DAILY PRN PO 01/06/18 14:30 (NovoLOG SUPPLEMENTAL SCALE) 1 ACHS SLIDING SCALE SQ 01/06/18 17:00 01/06/18 23:05 (Valium) 5 mg Q12HR PRN PO 01/06/18 14:45 01/07/18 04:22 (PROzac) 20 mg DAILY PO 01/07/18 09:00 (Neurontin) 100 mg TID PRN PO 01/06/18 14:45 (Singulair) 10 mg DAILY PO 01/07/18 09:00 01/07/18 07:54 (Roxicodone) 5 mg Q4H PRN PO 01/06/18 14:45 01/07/18 07:55 (Carafate) 1 gm QID PO 01/06/18 18:00 01/07/18 07:54 (Spiriva Inh) 18 mcg DAILY INH 01/07/18 09:00 (Ambien) 10 mg HS PRN PO 01/06/18 14:45 01/06/18 21:50 (Symbicort 160-4.5 Mcg Inh) 2 puff BID INH 01/06/18 15:00 01/07/18 07:55 (Protonix) 40 mg DAILY PO 01/06/18 21:00 01/07/18 07:54 (Pepcid) 20 mg BID PO 01/06/18 21:00 01/07/18 07:54 (D50w (Vial) Inj) 50 ml UNSCH PRN IV PUSH 01/06/18 14:45 (Glucagon Inj) 1 mg UNSCH PRN OTHER 01/06/18 14:45 (Duoneb Neb) 1 ampule Q4HR NEB NEB 01/06/18 16:00 01/07/18 07:35 (Mucinex Er) 600 mg BID PO 01/06/18 21:00 01/07/18 07:54 (Dilaudid Pf Inj) 1 mg Q4H PRN IV PUSH 01/06/18 15:15 01/07/18 04:12 (Lipitor) 40 mg HS PO 01/07/18 21:00 (Levaquin) 750 mg DAILY PO 01/07/18 09:00 Pharmacy Profile Note 0 ml @ 0 mls/hr UNSCH OTHER 01/07/18 08:30 Physical Exam Vital Signs Vital Signs Date Time Temp Pulse Resp B/P (MAP) Pulse Ox O2 Delivery O2 Flow Rate FiO2 01/07/18 04:00 98.7 69 20 101/56 (71) 96 01/07/18 00:20 98.1 69 19 98/50 (66) 94 01/06/18 20:15 98.8 73 17 116/63 (80) 94 01/06/18 16:00 97.4 56 16 91/46 (61) 92 01/06/18 15:56 01/06/18 14:29 72 18 100/68 (79) 95 Room Air 01/06/18 12:32 98.2 62 17 98/57 (71) 95 Physical Exam GENERAL: This is a well-nourished, well-developed patient, in no apparent distress. SKIN: Left second digit gangrene HEAD: Atraumatic. Normocephalic. EYES: Pupils equal round and reactive. Extraocular motions intact. No scleral icterus. No injection or drainage. ENT: Nose without bleeding, purulent drainage or septal hematoma. Airway patent. NECK: Trachea midline. RESPIRATORY:Non labored breathing. MUSCULOSKELETAL: No calf tenderness. Negative Homans sign bilaterally. NEUROLOGICAL: Awake and alert. Normal speech. Laboratory Laboratory Tests Test 01/06/18 13:00 White Blood Count 6.7 Red Blood Count 4.43 Hemoglobin 13.8 Hematocrit 40.0 Mean Corpuscular Volume 90.3 Mean Corpuscular Hemoglobin 31.1 Mean Corpuscular Hemoglobin Concent 34.5 Red Cell Distribution Width 13.5 Platelet Count 216 Mean Platelet Volume 7.8 Neutrophils (%) (Auto) 61.5 Lymphocytes (%) (Auto) 28.5 Monocytes (%) (Auto) 5.9 Eosinophils (%) (Auto) 3.4 Basophils (%) (Auto) 0.7 Neutrophils # (Auto) 4.1 Lymphocytes # (Auto) 1.9 Monocytes # (Auto) 0.4 Eosinophils # (Auto) 0.2 Basophils # (Auto) 0.0 CBC Comment DIFF FINAL Differential Comment Erythrocyte Sedimentation Rate 13 Blood Urea Nitrogen 15 Creatinine 0.73 Random Glucose 92 Total Protein 7.2 Albumin 3.6 Calcium Level 8.4 Alkaline Phosphatase 163 Aspartate Amino Transf (AST/SGOT) 13 Alanine Aminotransferase (ALT/SGPT) 23 Total Bilirubin 0.3 Sodium Level 138 Potassium Level 3.7 Chloride Level 104 Carbon Dioxide Level 30.4 Anion Gap 4 Estimat Glomerular Filtration Rate 81 Lactic Acid Level 0.9 C-Reactive Protein LESS THAN 0.29 Triglycerides Level 164 Cholesterol Level 218 LDL Cholesterol 134 HDL Cholesterol 51.3 Cholesterol/HDL Ratio 4.24 Free Thyroxine 0.81 Thyroid Stimulating Hormone 3rd Gen 2.520 Date/Time Source Procedure Growth Status 01/06/18 13:16 Blood Peripheral Aerobic Blood Culture Pending Received 01/06/18 13:16 Blood Peripheral Anaerobic Blood Culture Pending Received Result Diagram: 01/06/18 1300 01/06/18 1300 Imaging Last Impressions Toe X-Ray 01/06/18 0000 Signed Impressions: Service Date/Time: Saturday, January 06, 2018 13:27 - CONCLUSION: No abnormality identified with respect to the distal phalanx of the first digit, however, there is osseous irregularity involving the base of the proximal phalanx concerning for possible site of osteomyelitis.. Tisha Dominguez MD Assessment and Plan Assessment and Plan 62-year-old female with left foot second digit gangrene Patient examined and evaluated with all questions answered We will continue to await demarcation Patient to OR tomorrow for left second digit amputation/ debridement NPO after midnight Consent to read left second digit amputation with any other indicated procedures Continue IV antibiotics Dress with dry sterile dressing Klarissa Carlos DPM Jan 07, 2018 08:29
[2018-01-07] MEDS ORDERED: Vancomycin Consult Pharmacy 1 EA OTHER SCH (08:30)
[2018-01-07 09:17] LABS: AUTOMATED NEUTROPHIL # 3.1 TH/MM3 (1.8-7.7); BASOPHIL % 0.4 % (0.0-2.0); EOSINOPHIL # 0.1 TH/MM3 (0-0.4); EOSINOPHIL % 2.2 % (0.0-4.0); HEMATOCRIT 36.1 % (35.0-46.0); HEMOGLOBIN 12.4 GM/DL (11.6-15.3); LYMPH % 22.8 % (9.0-44.0); MEAN CORPUSCULAR HGB CONC 34.4 % (32.0-36.0); MEAN PLATELET VOLUME 7.7 FL (7.0-11.0); MONO % 5.6 % (0.0-8.0); MONOCYTE # 0.3 TH/MM3 (0-0.9); PLATELET COUNT 145 TH/MM3 (150-450); RED BLOOD COUNT 4.01 MIL/MM3 (4.00-5.30); RED CELL DISTRIBUTION WIDTH 13.4 % (11.6-17.2); WHITE BLOOD COUNT 4.5 TH/MM3 (4.0-11.0)
[2018-01-07 09:33] LABS: ALBUMIN 2.9 GM/DL (3.4-5.0); AST (GOT) 19 U/L (15-37); BICARBONATE 28.2 MEQ/L (21.0-32.0); BLOOD UREA NITROGEN 10 MG/DL (7-18); CALCIUM 7.9 MG/DL (8.5-10.1); CHLORIDE 110 MEQ/L (98-107); CREATININE 0.67 MG/DL (0.50-1.00); GLOMERULAR FILTRATION RATE 90 ML/MIN (>89); GLUCOSE,RANDOM 119 MG/DL (74-106); MAGNESIUM 2.2 MG/DL (1.5-2.5); SODIUM (NA) 142 MEQ/L (136-145)
[2018-01-07] MEDS: LEVOFLOXACIN 750 MG TAB PO SCH (09:33)
[2018-01-07 09:40] LABS: ALKALINE PHOSPHATASE 151 U/L (45-117); ALT (GPT) 25 U/L (10-53); PHOSPHORUS 2.8 MG/DL (2.5-4.9); TOTAL BILIRUBIN ADULT 0.3 MG/DL (0.2-1.0); TOTAL PROTEIN 5.8 GM/DL (6.4-8.2)
--- NOTE | 2018-01-07 10:09 | HHI.PR ---
Subjective Remarks Follow-up for left foot second digit gangrene. Patient is currently doing well. Denies any fever or chills. Surgery is planned tomorrow Objective Vitals Vital Signs Date Time Temp Pulse Resp B/P (MAP) Pulse Ox O2 Delivery O2 Flow Rate FiO2 01/07/18 08:00 98.2 83 18 118/58 (78) 96 01/07/18 04:00 98.7 69 20 101/56 (71) 96 01/07/18 00:20 98.1 69 19 98/50 (66) 94 01/06/18 20:15 98.8 73 17 116/63 (80) 94 01/06/18 16:00 97.4 56 16 91/46 (61) 92 01/06/18 15:56 01/06/18 14:29 72 18 100/68 (79) 95 Room Air 01/06/18 12:32 98.2 62 17 98/57 (71) 95 I/O 01/06/18 01/06/18 01/06/18 01/07/18 01/07/18 01/07/18 07:00 15:00 23:00 07:00 15:00 23:00 Intake Total 900 ml 500 ml Balance 900 ml 500 ml Intake Oral 900 ml 500 ml # Voids 1 2 # Bowel Movements 0 0 Result Diagram: 01/07/18 0845 01/07/18 0845 Imaging Last Impressions Toe X-Ray 01/06/18 0000 Signed Impressions: Service Date/Time: Saturday, January 06, 2018 13:27 - CONCLUSION: No abnormality identified with respect to the distal phalanx of the first digit, however, there is osseous irregularity involving the base of the proximal phalanx concerning for possible site of osteomyelitis.. Tisha Dominguez MD Objective Remarks GENERAL: Alert, oriented 3, NAD. SKIN: Warm and dry. HEAD: Normocephalic. EYES: No scleral icterus. No injection or drainage. NECK: Supple, trachea midline. No JVD or lymphadenopathy. CARDIOVASCULAR: Regular rate and rhythm without murmurs, gallops, or rubs. RESPIRATORY: Breath sounds equal bilaterally. No accessory muscle use. GASTROINTESTINAL: Abdomen soft, non-tender, nondistended. MUSCULOSKELETAL: No cyanosis, or edema. Left foot second digit wrapped in dressing. BACK: Nontender without obvious deformity. No CVA tenderness. Procedures None A/P Problem List: (1) Gangrene ICD Code: I96 - Gangrene, not elsewhere classified Status: Acute (2) Osteomyelitis ICD Code: M86.9 - Osteomyelitis, unspecified Status: Acute (3) Diabetes mellitus ICD Code: E11.9 - Type 2 diabetes mellitus without complications Assessment and Plan This is a pleasant 62 y/o Female who came to ER with left second toe infection, she has DM II, her digit has been ecchymotic since December 16. The patient has been followed by her bilingual teacher, Dr. Morales, who referred her to the emergency department for admission and evaluation by his partner for possible surgical excision. Radiological studies indicated possible osteomyelitis. - Gangrene of 2nd digit of left foot - Probable osteomyelitis - We'll keep patient on IV vancomycin for MRSA coverage and by mouth Levaquin for gram-negative. - Currently no leukocytosis or fever. Blood cultures negative so far. - Appreciate podiatry input. Likely surgical intervention tomorrow 2017. - Continue diabetic diet today. Nothing by mouth midnight. - Oxycodone, Dilaudid when necessary for pain control. - Diabetes mellitus - Currently well controlled but sugar on sliding scale insulin. Goal blood sugar 140-180. - Hyperlipidemia - Total cholesterol 218, LDL cholesterol 134. - We'll start patient on Lipitor 40 mg daily at bedtime. - COPD - continue Symbicort, Spiriva. - Anxiety/Depression - continue Valium 5 mg every 12 hours when necessary, Prozac 20 mg daily. Full code. Lovenox. Problem Qualifiers (1) Osteomyelitis: Qualified Codes: M86.9 - Osteomyelitis, unspecified Deangelo August DO Jan 07, 2018 10:09 am
[2018-01-07] MEDS: VANCOMYCIN 1 GM/200 ML PREMIX IV SCH (10:51)
[2018-01-07 12:00] VITALS: BP 114/56; PULSE 71; RESP 18; TEMP 98.3; O2SAT 97
[2018-01-07 13:01] LABS: HEMOGLOBIN A1C 5.8 % (4.3-6.0)
[2018-01-07] MEDS ORDERED: ENOXAPARIN SODIUM 40 MG/0.4 ML SYRINGE SQ SCH (14:00)
[2018-01-07 16:00] VITALS: BP 123/64; PULSE 75; RESP 18; TEMP 97.8; O2SAT 95
[2018-01-07] MEDS: ATORVASTATIN 40 MG TAB PO SCH (20:44)
[2018-01-07 20:50] VITALS: BP 108/58; PULSE 71; RESP 18; TEMP 97.3; O2SAT 95
[2018-01-07] MEDS ORDERED: LACTATED RINGER'S 1000 ML IV PRN (22:15)
[2018-01-07] MEDS ORDERED: CHLORHEXIDINE GLUCONATE 2 % 1 PACK (2 CLOTHS) TOPICAL PRN (22:15)
[2018-01-07] MEDS ORDERED: SODIUM CHLORID 0.9% 500 ML IV PRN (22:15)
[2018-01-07] MEDS ORDERED: METOPROLOL TARTRATE 25 MG TAB PO PRN (22:15)
[2018-01-07] MEDS: ZOLPIDEM TARTRATE 10 MG TAB PO PRN (22:39)
[2018-01-07] MEDS: GABAPENTIN 100 MG CAP PO PRN (22:40)
[2018-01-08 00:20] VITALS: BP 122/58; PULSE 65; RESP 19; TEMP 98.1; O2SAT 96
[2018-01-08] MEDS: VANCOMYCIN 1 GM/200 ML PREMIX IV SCH ×3 (01:23→23:49)
[2018-01-08] MEDS: HYDROmorphone HCL PF 2 MG/ML VIAL IV PUSH PRN ×3 (01:24→10:47)
[2018-01-08] MEDS: RESP: ALBUTEROL 2.5 MG/IPRATROPIUM 0.5 MG NEB (SCH) NEB ×6 (03:19→19:43)
[2018-01-08 04:00] VITALS: BP 110/58; PULSE 64; RESP 19; TEMP 97.7; O2SAT 96
[2018-01-08] MEDS: SODIUM CHLORIDE 0.9% FLUSH 10 ML FLUSH IV FLUSH SCH ×2 (06:54→21:05)
[2018-01-08] MEDS: INSULIN ASPART SUPPLEMENTAL SCALE SQ SCH ×4 (06:54→21:00)
[2018-01-08] MEDS: FLUoxetine HCL 20 MG CAP PO SCH (06:55)
[2018-01-08] MEDS: SUCRALFATE 1 GM TAB PO SCH ×4 (06:55→21:03)
[2018-01-08] MEDS: MONTELUKAST SODIUM 10 MG TAB PO SCH (06:55)
[2018-01-08] MEDS: PANTOPRAZOLE SOD 40 MG DELAYED RELEASE TAB PO SCH (07:10)
[2018-01-08] MEDS: LEVOFLOXACIN 750 MG TAB PO SCH (07:10)
[2018-01-08] MEDS: SODIUM CHLOR 0.9% 1000 ML INJ 1,000 ML IV SCH (07:11)
[2018-01-08] MEDS: guaiFENesin E.R. 600 MG TAB PO SCH ×2 (07:11→21:04)
[2018-01-08] MEDS: FAMOTIDINE 20 MG TAB PO SCH ×2 (07:11→21:04)
[2018-01-08] MEDS: TIOTROPIUM BROMIDE 18 MCG INH INH SCH (07:11)
[2018-01-08] MEDS: BUDESONIDE-FORMOTEROL 160/4.5 MCG INHALER INH SCH ×2 (07:15→21:02)
[2018-01-08 07:52] VITALS: BP 103/54; PULSE 55; RESP 18; TEMP 97.6; O2SAT 92
[2018-01-08 11:46] VITALS: BP 101/55; PULSE 58; RESP 18; TEMP 98.1; O2SAT 91
[2018-01-08] MEDS ORDERED: PROPOFOL 200 MG/20 ML AMP IV ONE (12:00)
[2018-01-08] MEDS ORDERED: GLYCOPYRROLATE 1 MG/5 ML SYRINGE IV PUSH ONE (12:00)
[2018-01-08] MEDS ORDERED: ROCURONIUM INJ 50 MG/5 ML SYRINGE IV PUSH ONE (12:00)
[2018-01-08] MEDS ORDERED: ONDANSETRON HCL 4 MG/2 ML VIAL IV ONE (12:00)
[2018-01-08] MEDS ORDERED: NEOSTIGMINE 5 MG/5 ML SYRINGE IV PUSH ONE (12:00)
[2018-01-08] MEDS ORDERED: PHENYLEPH/NS 1000 MCG/10 ML SYR IV ONE (12:00)
[2018-01-08] MEDS ORDERED: LIDOCAINE HCL 1% PF 5 ML SYRINGE OTHER ONE (12:00)
[2018-01-08] MEDS ORDERED: KETOROLAC TROMETHAMINE 60 MG/2 ML (IM) VIAL IM SCH (12:00)
[2018-01-08] MEDS ORDERED: SUCCINYLCHOLINE CHLORIDE 200 MG/10 ML VIAL IV ONE (12:00)
--- NOTE | 2018-01-08 12:06 | HHI.PR ---
Subjective Remarks Follow-up for left foot second digit gangrene. Patient complains of inadequate pain control. However she is drowsy. No fever or chills. She is scheduled for surgical intervention today. Objective Vitals Vital Signs Date Time Temp Pulse Resp B/P (MAP) Pulse Ox O2 Delivery O2 Flow Rate FiO2 01/08/18 11:46 98.1 58 18 101/55 (70) 91 01/08/18 07:52 97.6 55 18 103/54 (70) 92 01/08/18 04:00 97.7 64 19 110/58 (75) 96 01/08/18 00:20 98.1 65 19 122/58 (79) 96 01/07/18 20:50 97.3 71 18 108/58 (75) 95 01/07/18 16:00 97.8 75 18 123/64 (83) 95 I/O 01/07/18 01/07/18 01/07/18 01/08/18 01/08/18 01/08/18 07:00 15:00 23:00 07:00 15:00 23:00 Intake Total 500 ml 200 ml 2382 ml 900 ml Balance 500 ml 200 ml 2382 ml 900 ml Intake Oral 500 ml 1500 ml 900 ml IV Total 200 ml 882 ml # Voids 2 2 4 # Bowel Movements 0 0 0 Result Diagram: 01/07/18 0845 01/07/18 0845 Imaging Last Impressions Toe X-Ray 01/06/18 0000 Signed Impressions: Service Date/Time: Saturday, January 06, 2018 13:27 - CONCLUSION: No abnormality identified with respect to the distal phalanx of the first digit, however, there is osseous irregularity involving the base of the proximal phalanx concerning for possible site of osteomyelitis.. Tisha Dominguez MD Objective Remarks GENERAL: Alert, oriented 3, NAD. SKIN: Warm and dry. HEAD: Normocephalic. EYES: No scleral icterus. No injection or drainage. NECK: Supple, trachea midline. No JVD or lymphadenopathy. CARDIOVASCULAR: Regular rate and rhythm without murmurs, gallops, or rubs. RESPIRATORY: Breath sounds equal bilaterally. No accessory muscle use. GASTROINTESTINAL: Abdomen soft, non-tender, nondistended. MUSCULOSKELETAL: No cyanosis, or edema. Left foot second digit wrapped in dressing. BACK: Nontender without obvious deformity. No CVA tenderness. Procedures None A/P Problem List: (1) Gangrene ICD Code: I96 - Gangrene, not elsewhere classified Status: Acute (2) Osteomyelitis ICD Code: M86.9 - Osteomyelitis, unspecified Status: Acute (3) Diabetes mellitus ICD Code: E11.9 - Type 2 diabetes mellitus without complications Assessment and Plan This is a pleasant 62 y/o Female who came to ER with left second toe infection, she has DM II, her digit has been ecchymotic since December 16. The patient has been followed by her sheet rock sander, Dr. Morales, who referred her to the emergency department for admission and evaluation by his partner for possible surgical excision. Radiological studies indicated possible osteomyelitis. - Gangrene of 2nd digit of left foot - Probable osteomyelitis - We'll keep patient on IV vancomycin for MRSA coverage and by mouth Levaquin for gram-negative. - Currently no leukocytosis or fever. Blood cultures negative so far. - Appreciate podiatry input. Likely surgical intervention 01/08/2018. - Oxycodone, Dilaudid when necessary for pain control. - Hold pain medication for sedation. - Diabetes mellitus - Currently well controlled but sugar on sliding scale insulin. Goal blood sugar 140-180. - Hyperlipidemia - Total cholesterol 218, LDL cholesterol 134. - Continue Lipitor 40 mg daily at bedtime. - COPD - continue Symbicort, Spiriva. - Anxiety/Depression - continue Valium 5 mg every 12 hours when necessary, Prozac 20 mg daily. Full code. Lovenox. Discussed with podiatry, RN. Discharge plan: Post surgery, if pathology shows clear margin, patient can be discharged on oral antibiotics for 7 additional days. Problem Qualifiers (1) Osteomyelitis: Qualified Codes: M86.9 - Osteomyelitis, unspecified Deangelo August DO Jan 08, 2018 12:06 pm
[2018-01-08] MEDS: KETOROLAC TROMETHAMINE 30 MG/ML (IVP) VIAL IV PUSH SCH ×3 (12:21→23:50)
[2018-01-08 16:04] VITALS: BP 136/62; PULSE 62; RESP 18; TEMP 97.6; O2SAT 96
[2018-01-08] MEDS ORDERED: BUPIVACAINE HCL PF 0.5% 30 ML VIAL INFIL ONE (19:32)
[2018-01-08] MEDS ORDERED: RESP: ALBUTEROL CONC 2.5 MG/0.5 ML NEB ONE (19:55)
[2018-01-08] MEDS ORDERED: DO NOT ADM ANY ANTICOAGULANT DRUGS PRN (20:00)
[2018-01-08] MEDS ORDERED: *MEPERIDINE 25 MG INJ VIAL PERIprocedural Use ONLY ONE (20:11)
[2018-01-08] MEDS ORDERED: MIDAZOLAM HCL 2 MG/2 ML VIAL ONE (20:26)
--- NOTE | 2018-01-08 20:36 | RADRPT ---
EXAM DATE/TIME: 01/08/2018 20:08 [facility] COMPARISON: FOOT LEFT COMPLETE ([id number]), July 28, 2017, 10:37. INDICATIONS : Post operative left foot. Second digit amputaion. MEDICAL HISTORY : Myocardial infarction. SURGICAL HISTORY : Bunionectomy. ENCOUNTER: Initial ACUITY: 1 day PAIN SCORE: Non-responsive. LOCATION: Left foot. FINDINGS: There is cavitation of the second digit at the proximal phalanx and distal second metatarsal. This pr evious fixation across the first MTP. Bones osteopenic. CONCLUSION: 1. Amputation at the second toe as above. Previous fusion across first MTP. Amrik Crain MD on January 08, 2018 at 20:32 Board Certified Radiologist. This report was verified electronically.
[2018-01-08] MEDS: ATORVASTATIN 40 MG TAB PO SCH (21:04)
[2018-01-08 21:33] VITALS: BP 121/57; PULSE 55; RESP 18; TEMP 97.8; O2SAT 97
[2018-01-08] MEDS ORDERED: PHARMACY ORDERED LAB ONE (22:45)
[2018-01-08] MEDS: SODIUM CHLORIDE 0.9% FLUSH 10 ML FLUSH IV FLUSH PRN (23:50)
[2018-01-09] VITALS (8 sets, daily range): BP systolic 94–118; BP diastolic 51–58; PULSE 66–76; RESP 17–20; TEMP 97.4–98.4; O2SAT 93–99
[2018-01-09] MEDS: RESP: ALBUTEROL 2.5 MG/IPRATROPIUM 0.5 MG NEB (SCH) NEB ×7 (00:09→23:12)
[2018-01-09] MEDS: SODIUM CHLORIDE 0.9% FLUSH 10 ML FLUSH IV FLUSH PRN ×2 (01:23→06:26)
[2018-01-09] MEDS: HYDROmorphone HCL PF 2 MG/ML VIAL IV PUSH PRN ×4 (01:23→18:44)
[2018-01-09] MEDS: DIAZEPAM 5 MG TAB PO PRN ×2 (03:05→15:12)
[2018-01-09] MEDS: KETOROLAC TROMETHAMINE 30 MG/ML (IVP) VIAL IV PUSH SCH ×3 (06:26→16:43)
--- NOTE | 2018-01-09 07:21 | MP ---
cc: MELA MORALES DATE OF SURGERY 01/08/2018 PREOPERATIVE DIAGNOSIS Left foot second digit dry gangrene. POSTOPERATIVE DIAGNOSIS Left foot second digit dry gangrene. PROCEDURES PERFORMED Left foot second digit amputation. PATHOLOGY SENT Left foot second digit. SURGEON Dr. Mela Morales [employer] REPRESENTATIVE first jhoan Ordoñez PATHOLOGY SENT Left second digit. ANESTHESIA General. HEMOSTASIS anatomical dissection. ESTIMATED BLOOD LOSS 10 mL. INJECTABLES 10 cc of 0.5% Marcaine plain. MATERIALS USED 3-0 Prolene. COMPLICATIONS None. INDICATIONS Ms. Priest is a patient well-known to me from the office. She had an elective hammertoe correction first MPJ implant. The second digit hammertoe correction was a third time revisional surgery. She had a floating toe which was painful and intolerable to her. She was advised of high complication and risks regarding revisional toe surgery but elected to move forward in spite of these risks as she feels the pain outwieghs the risks. Within a week of the surgery, the toe began to turn dark and necrotic. It was monitored closely in the office in hopes that it would remain viable and if not we could find the most proximal demarcation line. She was admitted to [facility] two days ago due to erythema in the area and has been on IV antibiotic ever since then. The toe did appear to clearly demarcate at the PIPJ and the decision was made to amputate at this time. The consent was signed. The procedure was explained. No guarantees were given. PROCEDURE Under and mild sedation the patient was brought into the operating room and placed on the operating table in a supine position. Following IV sedation, the foot was scrubbed, prepped and draped in the usual aseptic manner. Attention was directed to the second digit where there was dry gangrene circumferentially at the level of the PIPJ. The toe was circumscribed with a 15 blade scalpel deep to the level of bone and was severed at that the PIPJ. The metallic hammertoe implant was removed along with the distal aspect of the digit. There were bleeding healthy capillaries noted. Any and all nonviable soft tissue was removed. The area was flushed with copious amounts of sterile saline. There was no purulence or underlying deep infection noted. The area was closed with 3-0 Prolene. Capillary fill time was maintained throughout the entire procedure. 10 cc of 0.5% Marcaine plain were injected around the toe. A sterile dressing of Adaptic, 4x4s, cast padding and a very light Bryce bandage were applied. The patient tolerated the procedure and the anesthesia well. She will recover in the PACU for a period time before being discharged home with written and oral postoperative instructions. Mela LELIS /8:11 PM /7:05 AM ELIAS
[2018-01-09] MEDS: ENOXAPARIN SODIUM 40 MG/0.4 ML SYRINGE SQ SCH (07:39)
[2018-01-09] MEDS: LEVOFLOXACIN 750 MG TAB PO SCH (07:41)
[2018-01-09] MEDS: PANTOPRAZOLE SOD 40 MG DELAYED RELEASE TAB PO SCH (07:41)
[2018-01-09] MEDS: FLUoxetine HCL 20 MG CAP PO SCH (07:41)
[2018-01-09] MEDS: guaiFENesin E.R. 600 MG TAB PO SCH ×2 (07:41→21:44)
[2018-01-09] MEDS: FAMOTIDINE 20 MG TAB PO SCH ×2 (07:42→21:44)
[2018-01-09] MEDS: MONTELUKAST SODIUM 10 MG TAB PO SCH (07:42)
[2018-01-09] MEDS: BUDESONIDE-FORMOTEROL 160/4.5 MCG INHALER INH SCH ×2 (07:45→22:07)
[2018-01-09] MEDS: SODIUM CHLORIDE 0.9% FLUSH 10 ML FLUSH IV FLUSH SCH ×2 (07:45→21:00)
[2018-01-09] MEDS: INSULIN ASPART SUPPLEMENTAL SCALE SQ SCH ×4 (07:46→21:00)
[2018-01-09] MEDS: TIOTROPIUM BROMIDE 18 MCG INH INH SCH (07:46)
[2018-01-09] MEDS: SUCRALFATE 1 GM TAB PO SCH ×4 (07:48→21:43)
[2018-01-09] MEDS ORDERED: oxyCODONE/ACETAMINOPHEN 7.5 MG/325 MG TAB PO PRN (08:45)
[2018-01-09] MEDS: VANCOMYCIN 1 GM/200 ML PREMIX IV SCH (09:56)
[2018-01-09] MEDS ORDERED: ACETAMINOPHEN 325 MG TAB PO PRN (10:30)
[2018-01-09] MEDS: SODIUM CHLOR 0.9% 1000 ML INJ 1,000 ML IV SCH (14:24)
[2018-01-09] MEDS: GABAPENTIN 100 MG CAP PO PRN (15:12)
--- NOTE | 2018-01-09 17:20 | HHI.PR ---
Subjective Remarks Follow-up for left foot second digit gangrene. Patient is currently doing well. No fever, chills. Objective Vitals Vital Signs Date Time Temp Pulse Resp B/P (MAP) Pulse Ox O2 Delivery O2 Flow Rate FiO2 01/09/18 12:00 98.4 74 20 106/52 (70) 93 01/09/18 08:00 98.4 67 20 114/56 (75) 93 01/09/18 07:44 97 21 01/09/18 06:27 97.9 68 20 94/57 (69) 93 01/09/18 01:06 97.4 76 18 118/58 (78) 99 01/08/18 21:33 97.8 55 18 121/57 (78) 97 01/08/18 20:30 98.6 57 14 122/57 (78) 99 Nasal Cannula 2 01/08/18 20:15 58 14 136/63 (87) 100 Nasal Cannula 3 01/08/18 20:00 62 14 141/66 (91) 100 Simple Mask 10 01/08/18 19:57 98.2 69 12 151/63 (92) 100 Simple Mask 10 I/O 01/08/18 01/08/18 01/08/18 01/09/18 01/09/18 01/09/18 07:00 15:00 23:00 07:00 15:00 23:00 Intake Total 900 ml 200 ml 1836 ml 200 ml 696 ml Output Total 210 ml Balance 900 ml 200 ml 1626 ml 200 ml 696 ml Intake Oral 900 ml 0 ml IV Total 200 ml 1036 ml 200 ml 696 ml Other 800 ml Output Urine Total 200 ml Estimated Blood Loss 10 ml # Voids 4 2 5 # Bowel Movements 0 Result Diagram: 01/07/1845 01/07/18 0845 Imaging Last Impressions Foot X-Ray 01/08/18 0000 Signed Impressions: Service Date/Time: Monday, January 08, 2018 20:08 - CONCLUSION: 1. Amputation at the second toe as above. Previous fusion across first MTP. Amrik Crain MD Toe X-Ray 01/06/18 0000 Signed Impressions: Service Date/Time: Saturday, January 06, 2018 13:27 - CONCLUSION: No abnormality identified with respect to the distal phalanx of the first digit, however, there is osseous irregularity involving the base of the proximal phalanx concerning for possible site of osteomyelitis.. Tisha Dominguez MD Objective Remarks GENERAL: Alert, oriented 3, NAD. SKIN: Warm and dry. HEAD: Normocephalic. EYES: No scleral icterus. No injection or drainage. NECK: Supple, trachea midline. No JVD or lymphadenopathy. CARDIOVASCULAR: Regular rate and rhythm without murmurs, gallops, or rubs. RESPIRATORY: Breath sounds equal bilaterally. No accessory muscle use. GASTROINTESTINAL: Abdomen soft, non-tender, nondistended. MUSCULOSKELETAL: No cyanosis, or edema. s/p 2nd toe left foot amputation. Foot wrapped. BACK: Nontender without obvious deformity. No CVA tenderness. Procedures Left foot second digit amputation. 01/08/2018. A/P Problem List: (1) Gangrene ICD Code: I96 - Gangrene, not elsewhere classified Status: Acute (2) Osteomyelitis ICD Code: M86.9 - Osteomyelitis, unspecified Status: Acute (3) Diabetes mellitus ICD Code: E11.9 - Type 2 diabetes mellitus without complications Assessment and Plan This is a pleasant 62 y/o Female who came to ER with left second toe infection, she has DM II, her digit has been ecchymotic since December 16. The patient has been followed by her employment attorney, Dr. Morales, who referred her to the emergency department for admission and evaluation by his partner for possible surgical excision. Radiological studies indicated possible osteomyelitis. - Gangrene of 2nd digit of left foot - Probable osteomyelitis - We'll keep patient on IV vancomycin for MRSA coverage and by mouth Levaquin for gram-negative. - Currently no leukocytosis or fever. Blood cultures negative so far. - Appreciate podiatry input. Left foot second digit amputation completed on 01/08/2018. - Oxycodone, Dilaudid when necessary for pain control. - Hold pain medication for sedation. - Diabetes mellitus - Currently well controlled but sugar on sliding scale insulin. Goal blood sugar 140-180. - Hyperlipidemia - Total cholesterol 218, LDL cholesterol 134. - Continue Lipitor 40 mg daily at bedtime. - COPD - continue Symbicort, Spiriva. - Anxiety/Depression - continue Valium 5 mg every 12 hours when necessary, Prozac 20 mg daily. Full code. Lovenox. Discharge: Pending further podiatry input. Probable discharge in 1-2 days. Problem Qualifiers (1) Osteomyelitis: Qualified Codes: M86.9 - Osteomyelitis, unspecified Deangelo August DO Jan 09, 2018 17:20
--- NOTE | 2018-01-09 19:37 | PD.POD ---
Subjective Podiatric Problems POD #1 left 2nd toe amputation. Pt states that new pain medication regiment is helping a lot but she continues to feel very emotional (this is my usual experience with this patient). She denies any n/v/f/h/c/sob. Pain score: 4 Past Med/Surg/Social History Past Medical History Respiratory: REPORTS HX OF: COPD Gastrointestinal: REPORTS HX OF: Liver disease, Pancreatitis Musculoskeletal: REPORTS HX OF: Fibromyalgia, Osteoarthritis Psychiatric: REPORTS HX OF: Depression Past Surgical History HEENT: REPORTS HX OF: Other eye surgery, Other nasal surgery Gynecologic: REPORTS HX OF: delivery, Hysterectomy Musculoskeletal: REPORTS HX OF: Other musculoskeletal srg (foot and finger) Breast: REPORTS HX OF: Breast biopsy Social History Smoking Status: Former Smoker Objective Vital Signs Vital Signs Date Time Temp Pulse Resp B/P (MAP) Pulse Ox O2 Delivery O2 Flow Rate FiO2 01/09/18 19:01 95 21 01/09/18 16:00 98.0 67 20 109/51 (70) 93 01/09/18 12:00 98.4 74 20 106/52 (70) 93 01/09/18 08:00 98.4 67 20 114/56 (75) 93 01/09/18 07:44 97 21 01/09/18 06:27 97.9 68 20 94/57 (69) 93 01/09/18 01:06 97.4 76 18 118/58 (78) 99 01/08/18 21:33 97.8 55 18 121/57 (78) 97 01/08/18 20:30 98.6 57 14 122/57 (78) 99 Nasal Cannula 2 01/08/18 20:15 58 14 136/63 (87) 100 Nasal Cannula 3 01/08/18 20:00 62 14 141/66 (91) 100 Simple Mask 10 01/08/18 19:57 98.2 69 12 151/63 (92) 100 Simple Mask 10 Coded Allergies: Iodinated Contrast- Oral and IV Dye (Verified Allergy, Severe, 01/06/18) morphine (Unverified Allergy, Mild, 10/09/17) Uncoded Allergies: MDRO (Adverse Reaction, Unknown, 07/24/17) MRSA IN R HAND AND ON BACK SEVERAL YEARS AGO Physical Exam Remarks Bandages clean, dry, and intact. CFT < 3 secs. AROM to remaining digits WNL. Assessment & Plan A/P 1) s/p left 2nd toe amputation -plan to change surgical bandages tomorrow and likely d/c on PO abx -WBAT in surgical shoe -Cont iv abx currently Julita Morales DPM Jan 09, 2018 19:37
[2018-01-09] MEDS: ATORVASTATIN 40 MG TAB PO SCH (21:43)
[2018-01-09] MEDS: ZOLPIDEM TARTRATE 10 MG TAB PO PRN (21:58)
[2018-01-10] MEDS: HYDROmorphone HCL PF 2 MG/ML VIAL IV PUSH PRN ×3 (00:07→09:50)
[2018-01-10] MEDS: VANCOMYCIN 1 GM/200 ML PREMIX IV SCH ×2 (00:08→12:11)
[2018-01-10] MEDS: SODIUM CHLOR 0.9% 1000 ML INJ 1,000 ML IV SCH ×2 (00:08→17:39)
[2018-01-10 00:43] VITALS: BP 123/53; PULSE 56; RESP 17; TEMP 97.7; O2SAT 93
[2018-01-10] MEDS: KETOROLAC TROMETHAMINE 30 MG/ML (IVP) VIAL IV PUSH SCH ×4 (05:41→17:38)
[2018-01-10 05:51] VITALS: BP 130/60; PULSE 60; RESP 17; TEMP 97.7; O2SAT 93
[2018-01-10 06:15] VITALS: BP 135/67; PULSE 57; RESP 19; TEMP 97.7; O2SAT 94
[2018-01-10] MEDS ORDERED: CALCIUM CARBONATE 500 MG CHEWABLE TAB CHEW ONE (06:45)
[2018-01-10 08:00] VITALS: BP 122/73; PULSE 59; RESP 20; TEMP 97.8; O2SAT 94; O2SAT 99
[2018-01-10 08:43] LABS: CREATININE 0.58 MG/DL (0.50-1.00)
[2018-01-10] MEDS: SUCRALFATE 1 GM TAB PO SCH ×4 (08:43→17:47)
[2018-01-10] MEDS: guaiFENesin E.R. 600 MG TAB PO SCH (08:44)
[2018-01-10] MEDS: FAMOTIDINE 20 MG TAB PO SCH (08:44)
[2018-01-10] MEDS: LEVOFLOXACIN 750 MG TAB PO SCH (08:44)
[2018-01-10] MEDS: FLUoxetine HCL 20 MG CAP PO SCH (08:44)
[2018-01-10] MEDS: MONTELUKAST SODIUM 10 MG TAB PO SCH (08:44)
[2018-01-10] MEDS: ENOXAPARIN SODIUM 40 MG/0.4 ML SYRINGE SQ SCH (08:45)
[2018-01-10] MEDS: PANTOPRAZOLE SOD 40 MG DELAYED RELEASE TAB PO SCH (08:45)
[2018-01-10] MEDS: SODIUM CHLORIDE 0.9% FLUSH 10 ML FLUSH IV FLUSH SCH (08:46)
[2018-01-10] MEDS: BUDESONIDE-FORMOTEROL 160/4.5 MCG INHALER INH SCH (08:46)
[2018-01-10] MEDS: TIOTROPIUM BROMIDE 18 MCG INH INH SCH (08:46)
[2018-01-10] MEDS: INSULIN ASPART SUPPLEMENTAL SCALE SQ SCH ×3 (08:55→17:46)
--- NOTE | 2018-01-10 09:14 | HHI.PR ---
Subjective Remarks Follow-up for left foot second digit gangrene. Objective Vitals Vital Signs Date Time Temp Pulse Resp B/P (MAP) Pulse Ox O2 Delivery O2 Flow Rate FiO2 01/10/18 08:00 97.8 59 20 122/73 (89) 94 01/10/18 06:15 97.7 57 19 135/67 (89) 94 01/10/18 05:51 97.7 60 17 130/60 (83) 93 01/10/18 00:43 97.7 56 17 123/53 (76) 93 01/09/18 20:42 98.1 66 17 108/55 (72) 94 01/09/18 19:01 95 21 01/09/18 16:00 98.0 67 20 109/51 (70) 93 01/09/18 12:00 98.4 74 20 106/52 (70) 93 I/O 01/09/18 01/09/18 01/09/18 01/10/18 01/10/18 01/10/18 07:00 15:00 23:00 07:00 15:00 23:00 Intake Total 680 ml 696 ml 240 ml Balance 680 ml 696 ml 240 ml Intake Oral 480 ml 240 ml IV Total 200 ml 696 ml # Voids 5 3 3 Result Diagram: 01/07/18 0845 01/10/18 0805 Objective Remarks GENERAL: Alert, oriented 3, NAD. SKIN: Warm and dry. HEAD: Normocephalic. EYES: No scleral icterus. No injection or drainage. NECK: Supple, trachea midline. No JVD or lymphadenopathy. CARDIOVASCULAR: Regular rate and rhythm without murmurs, gallops, or rubs. RESPIRATORY: Breath sounds equal bilaterally. No accessory muscle use. GASTROINTESTINAL: Abdomen soft, non-tender, nondistended. MUSCULOSKELETAL: No cyanosis, or edema. s/p 2nd toe left foot amputation. Foot wrapped. BACK: Nontender without obvious deformity. No CVA tenderness. Procedures Left foot second digit amputation. 01/08/2018. A/P Problem List: (1) Gangrene ICD Code: I96 - Gangrene, not elsewhere classified Status: Acute (2) Osteomyelitis ICD Code: M86.9 - Osteomyelitis, unspecified Status: Acute (3) Diabetes mellitus ICD Code: E11.9 - Type 2 diabetes mellitus without complications Assessment and Plan This is a pleasant 62 y/o Female who came to ER with left second toe infection, she has DM II, her digit has been ecchymotic since December 16. The patient has been followed by her bread racker, Dr. Morales, who referred her to the emergency department for admission and evaluation by his partner for possible surgical excision. Radiological studies indicated possible osteomyelitis. - Gangrene of 2nd digit of left foot - Probable osteomyelitis - We'll keep patient on IV vancomycin for MRSA coverage and by mouth Levaquin for gram-negative. - Currently no leukocytosis or fever. Blood cultures negative so far. - Appreciate podiatry input. Left foot second digit amputation completed on 01/08/2018. - Oxycodone, Dilaudid when necessary for pain control. - Hold pain medication for sedation. - Diabetes mellitus - Currently well controlled but sugar on sliding scale insulin. Goal blood sugar 140-180. - Hyperlipidemia - Total cholesterol 218, LDL cholesterol 134. - Continue Lipitor 40 mg daily at bedtime. - COPD - continue Symbicort, Spiriva. - Anxiety/Depression - continue Valium 5 mg every 12 hours when necessary, Prozac 20 mg daily. Full code. Lovenox. Discharge: Pending further podiatry input. Probable discharge in 1-2 days. Problem Qualifiers (1) Osteomyelitis: Qualified Codes: M86.9 - Osteomyelitis, unspecified Deangelo August DO Jan 10, 2018 09:14
[2018-01-10] MEDS: RESP: ALBUTEROL 2.5 MG/IPRATROPIUM 0.5 MG NEB (SCH) NEB ×2 (12:00→15:31)
[2018-01-10 12:30] VITALS: BP 120/57; PULSE 52; RESP 20; TEMP 98; O2SAT 94
[2018-01-10] MEDS ORDERED: ATOR40TA16 PO (12:45)
[2018-01-10] MEDS ORDERED: OXYC-395 PO (12:45)
[2018-01-10] MEDS ORDERED: DOXY100C PO (12:47)
[2018-01-10 16:00] VITALS: BP 138/67; PULSE 53; RESP 20; TEMP 97.9; O2SAT 96
--- NOTE | 2018-01-10 16:51 | PD.POD ---
Subjective Podiatric Problems POD #2 left 2nd toe amputation. She denies any n/v/f/h/c/sob. Pain score: 4 Past Med/Surg/Social History Past Medical History Respiratory: REPORTS HX OF: COPD Gastrointestinal: REPORTS HX OF: Liver disease, Pancreatitis Musculoskeletal: REPORTS HX OF: Fibromyalgia, Osteoarthritis Psychiatric: REPORTS HX OF: Depression Past Surgical History HEENT: REPORTS HX OF: Other eye surgery, Other nasal surgery Gynecologic: REPORTS HX OF: delivery, Hysterectomy Musculoskeletal: REPORTS HX OF: Other musculoskeletal srg (foot and finger) Breast: REPORTS HX OF: Breast biopsy Social History Smoking Status: Former Smoker Objective Vital Signs Vital Signs Date Time Temp Pulse Resp B/P (MAP) Pulse Ox O2 Delivery O2 Flow Rate FiO2 01/10/18 12:30 98.0 52 20 120/57 (78) 94 01/10/18 08:00 97.8 59 20 122/73 (89) 94 01/10/18 08:00 99 21 01/10/18 06:15 97.7 57 19 135/67 (89) 94 01/10/18 05:51 97.7 60 17 130/60 (83) 93 01/10/18 00:43 97.7 56 17 123/53 (76) 93 01/09/18 20:42 98.1 66 17 108/55 (72) 94 01/09/18 19:01 95 21 Coded Allergies: Iodinated Contrast- Oral and IV Dye (Verified Allergy, Severe, 01/06/18) morphine (Unverified Allergy, Mild, 10/09/17) Uncoded Allergies: MDRO (Adverse Reaction, Unknown, 07/24/17) MRSA IN R HAND AND ON BACK SEVERAL YEARS AGO Physical Exam Remarks Second digit amputation- left- All sutures are intact, no drainage, no erythema , no signs of ischemia or necrosis. Assessment & Plan A/P 1) s/p left 2nd toe amputation -ok for d/c - needs po abx and pain meds at d/c -WBAT in [facility] -no HHC needed -f/u in office in 5 days Julita Morales DPM Jan 10, 2018 16:51
--- NOTE | 2018-01-10 20:44 | EKG ---
Date Performed: 01/10/2018 Time Performed: 06:43:02 PTAGE: 62 years EKG: Sinus bradycardia. Indeterminate axis Right bundle branch block Inferior T wave changes are nonspecific Generalized low QRS voltages Abnormal ECG PREVIOUS TRACING : 07/24/2017 10.58 Compared to prior tracing, SINUS BRADYCARDIA IS NEW DOCTOR: Bandar Cota Interpretating Date/Time 01/10/2018 20:42:51
--- NOTE | 2018-01-10 21:25 | HHI.DS ---
Discharge Summary Admission Date Jan 06, 2018 at 14:39 Discharge Date: Jan 10, 2018 Admitting Diagnosis Left foot gangrene (1) Gangrene ICD Code: I96 - Gangrene, not elsewhere classified Status: Acute (2) Osteomyelitis ICD Code: M86.9 - Osteomyelitis, unspecified Status: Acute (3) Diabetes mellitus ICD Code: E11.9 - Type 2 diabetes mellitus without complications Procedures Left foot second digit amputation. 01/08/2018. Brief History - From Admission This is a pleasant 62 y/o Female who came to ER with left second toe infection, she has DM II, her digit has been ecchymotic since December 16 The patient has been followed by her lead case manager, Dr. Morales, who referred her to the emergency department for admission and evaluation by his partner for possible surgical excision. The patient states she has had previous surgery on the same foot, She now notes the area over the dorsal aspect is open and draining, no foul smell. She does note subjective fevers intermittently for one week without chills or sweats. The patient had recent surgery performed by Doctor Julita Morales for the first left toe on July 30 2017, was already discussed with Podiatry specialist covering for the group and recommended for surgery tomorrow in am, she will be NPO at midnight CBC/BMP: 01/07/18 0845 01/10/18 0805 Significant Findings Laboratory Tests Test 01/08/18 22:40 01/10/18 08:05 Vancomycin Level Trough 14.7 MCG/ML (5.0-10.0) Troponin I LESS THAN 0.02 NG/ML Imaging Last Impressions Foot X-Ray 01/08/18 0000 Signed Impressions: Service Date/Time: Monday, January 08, 2018 20:08 - CONCLUSION: 1. Amputation at the second toe as above. Previous fusion across first MTP. Amrik Crain MD Toe X-Ray 01/06/18 0000 Signed Impressions: Service Date/Time: Saturday, January 06, 2018 13:27 - CONCLUSION: No abnormality identified with respect to the distal phalanx of the first digit, however, there is osseous irregularity involving the base of the proximal phalanx concerning for possible site of osteomyelitis.. Tisha Dominguez MD PE at Discharge GENERAL: Alert, oriented 3, NAD. SKIN: Warm and dry. HEAD: Normocephalic. EYES: No scleral icterus. No injection or drainage. NECK: Supple, trachea midline. No JVD or lymphadenopathy. CARDIOVASCULAR: Regular rate and rhythm without murmurs, gallops, or rubs. RESPIRATORY: Breath sounds equal bilaterally. No accessory muscle use. GASTROINTESTINAL: Abdomen soft, non-tender, nondistended. MUSCULOSKELETAL: No cyanosis, or edema. s/p 2nd toe left foot amputation. Foot wrapped. BACK: Nontender without obvious deformity. No CVA tenderness. Pt update on day of discharge Patient is doing well. No fever, chills. Podiatry saw patient and cleared for discharge. Hospital Course This is a pleasant 62 y/o Female who came to ER with left second toe infection, she has DM II, her digit has been ecchymotic since December 16. The patient has been followed by her lead case manager, Dr. Morales, who referred her to the emergency department for admission and evaluation by his partner for possible surgical excision. Radiological studies indicated possible osteomyelitis. - Gangrene of 2nd digit of left foot - Probable osteomyelitis - We'll keep patient on IV vancomycin for MRSA coverage and by mouth Levaquin for gram-negative. - Currently no leukocytosis or fever. Blood cultures negative so far. - Appreciate podiatry input. Left foot second digit amputation completed on 01/08/2018. - Oxycodone, Dilaudid when necessary for pain control. - Hold pain medication for sedation. - We will discharge patient on oral abx. - Diabetes mellitus - Currently well controlled but sugar on sliding scale insulin. Goal blood sugar 140-180. - Hyperlipidemia - Total cholesterol 218, LDL cholesterol 134. - Continue Lipitor 40 mg daily at bedtime. - COPD - continue Symbicort, Spiriva. - Anxiety/Depression - continue Valium 5 mg every 12 hours when necessary, Prozac 20 mg daily. Full code. Lovenox. Pt Condition on Discharge: Good Discharge Disposition: Discharge Home Discharge Time: > 30 minutes Discharge Instructions DIET: Follow Instructions for: Heart Healthy Diet, Diabetic Diet Activities you can perform: Regular-No Restrictions Follow up Referrals: Appointment for Follow Up PCP Follow-up - 1 Week PCP Follow-up Podiatry - 1 Week with Julita Morales DPM New Medications: Doxycycline Hyclate (Doxycycline Hyclate) 100 Mg Cap 100 MG PO BID for Infection, #14 CAP 0 Refills Atorvastatin (Atorvastatin) 40 Mg Tab 40 MG PO HS for Cholesterol Management, #90 TAB 3 Refills Oxycodone (Oxycodone) 10 Mg Tab 10 MG PO Q6H PRN for PAIN 5-10, #20 TAB Continued Medications: Albuterol 8.5 GM Inh (Proair Hfa 8.5 GM Inh) 90 Mcg/Act Aer 2 PUFF INH Q4-6H PRN for SHORTNESS OF BREATH, #1 INHALER 0 Refills 108 mcg/actuation Albuterol Neb (Albuterol Neb) 2.5 Mg/0.5 Ml Neb 2.5 MG NEB Q4HR NEB PRN for BRONCOSPASM, EA Note: The Albuterol Sulfate Inhalation Solution is concentrated and must be diluted. Read complete instructions carefully before using. Diazepam (Diazepam) 5 Mg Tab 5 MG PO Q12HR PRN for ANXIETY, TAB 0 Refills Econazole Topical (Econazole Topical) 1% Cream 1 APPLIC TOPICAL BID for Fungal Infection, #1 TUBE 0 Refills Fluoxetine (Fluoxetine) 20 Mg Capsule 20 MG PO DAILY, #30 CAP 0 Refills Gabapentin (Gabapentin) 100 Mg Cap 100 MG PO TID PRN for PAIN SCALE 1 TO 10, #90 CAP 0 Refills Metoclopramide (Metoclopramide) 5 Mg Tab 5 MG PO Q4HR, TAB 0 Refills Mometasone-Formoterol 120 Act Inh (Dulera 120 Act Inh) 200-5 Mcg/Act Inh 2 PUFF INH BID for Asthma Management, #1 INHALER 0 Refills Montelukast (Singulair) 10 Mg Tab 10 MG PO DAILY, #30 TAB 0 Refills Mupirocin Calcium (Topical) (Mupirocin) 2 % Cre 2 % TOPICAL TID Omeprazole (Omeprazole) 20 Mg Tab 20 MG PO BID, #30 TAB 0 Refills Ranitidine HCl (Zantac 75) 75 Mg Tablet 300 MG PO DAILY Sucralfate (Sucralfate) 1 Gm Tab 1 GM PO QID for Duodenal ulcer, #120 TAB 0 Refills on empty stomach Tiotropium Inh (Spiriva Handihaler) 18 Mcg Cap 18 MCG INH DAILY for COPD, #30 CAP 0 Refills 1 capsule = 18 mcg Zolpidem (Ambien) 10 Mg Tab 10 MG PO HS PRN for INSOMNIA, TAB 0 Refills Discontinued Medications: Oxycodone (Oxycodone) 5 Mg Cap 5 MG PO Q4H PRN for PAIN, CAP 0 Refills Oxycodone-Acetaminophen (Percocet) 10-325 mg Tab 1 TAB PO Q4H PRN for PAIN, #30 TAB 0 Refills Oxycodone (Oxycodone) 20 Mg Tab 20 MG PO Q12HR PRN for PAIN, TAB 0 Refills Deangelo August DO Jan 10, 2018 21:25
[2018-01-11] MEDS ORDERED: PHARMACY ORDERED LAB ONE (10:45)
== END 2018-01-10 18:30 | disposition home or self-care (01) | DRG 617 ==
LOC: NEPE 12:30 → NEDA 14:39 → N05A 16:02
PROVIDERS: ADMIT Hospitalist; ATTEND Hospitalist
PROC: 0SP Lower Joints, Removal (ICD-10-PCS; 2018-01-08)
PROC: 0Y6S0Z1 Detachment at Left 2nd Toe, High, Open Approach (ICD-10-PCS; principal; 2018-01-08 19:02)
DX: E11.69 Type 2 diabetes mellitus with other specified complication (principal); E11.52 Type 2 diabetes mellitus with diabetic peripheral angiopathy with gangrene; K50.90 Crohn's disease, unspecified, without complications; M86.9 Osteomyelitis, unspecified; E11.42 Type 2 diabetes mellitus with diabetic polyneuropathy; M79.7 Fibromyalgia; M19.90 Unspecified osteoarthritis, unspecified site; F41.9 Anxiety disorder, unspecified; E78.5 Hyperlipidemia, unspecified; J44.9 Chronic obstructive pulmonary disease, unspecified; K21.9 Gastro-esophageal reflux disease without esophagitis; F32.9 Major depressive disorder, single episode, unspecified; Z86.14 Personal history of Methicillin resistant Staphylococcus aureus infection; Z79.84 Long term (current) use of oral hypoglycemic drugs; Z87.891 Personal history of nicotine dependence
CPT/HCPCS: 73630; 73660; 80053; 80061; 80202; 82565; 82948; 83036; 83605; 83735; 84100; 84439; 84443; 84484; 85025; 85652; 86140; 87040; 88305; 88311; 93005; 94150; 94640; 94664; 96365; 96368; 96375; J0330; J1170; J1650; J1815; J1885; J2175; J2250; J2370; J2405; J2543; J2710; J3010; J3370; J7030; J7050; J7611; L3260